=== PATIENT | female | born 1980 | race Caucasian/White ===

== ENCOUNTER 2023-11-20 19:03 | Emergency (ER) | payer MEDICARE, OTHER ==
[2023-11-20] MEDS ORDERED: SODIUM CHLORIDE 0.9% 500 ML 500 ML IV STA (20:17)
[2023-11-20] MEDS ORDERED: LORazepam 2 MG/ML INJ IV PRN (20:21)
[2023-11-20] MEDS ORDERED: ACETAMINOPHEN TAB 500 MG TAB PO STA (20:26)
[2023-11-20 21:28] LABS: Basophils # (A) 0.1 k/uL (0-0.2); Basophils % (A) 1 %; Eosinophils # (A) 0.1 k/uL (0-0.7); Eosinophils % (A) 2 %; HCT 43.9 % (34.0-46.0); HGB 14.5 gm/dL (11.4-16.0); Lymphocytes # (A) 1.8 k/uL (1.0-4.8); Lymphocytes % (A) 27 %; MCHC 33.1 g/dL (31.0-37.0); MCV 99.5 fL (80.0-100.0); Mean Platelet Volume 9.6; Monocytes # (A) 0.5 k/uL (0-1.0); Monocytes % (A) 7 %; Neutrophils # (A) 4.3 k/uL (1.3-7.7); Neutrophils % (A) 63 %; Platelet Count 165 k/uL (150-450); RBC 4.41 m/uL (3.80-5.40); RDW 11.9 % (11.5-15.5); WBC 6.9 k/uL (3.8-10.6)
--- NOTE | 2023-11-20 21:32 | CT ---
EXAMINATION TYPE: CT brain wo con CT DLP: 1122.4 mGycm, Automated exposure control for dose reduction was used. DATE OF EXAM: 11/20/2023 9:25 PM COMPARISON: None. CLINICAL INDICATION:Female, 43 years old with history of seizure activity, headache TECHNIQUE: Brain: Axial CT images of the brain were obtained with coronal and sagittal reformats created and rev iewed. Contrast used: None. Oral contrast used: None. FINDINGS: Brain: Extra-axial spaces: No abnormal extra-axial fluid collections. Ventricular system: Within normal limits Cerebral parenchyma: No acute intraparenchymal hemorrhage or mass effect. The calderón-white junction is well differentiated. Cerebellum: Unremarkable. Mass effect: No evidence of midline shift. Intracranial vasculature: unremarkable Soft tissues: Normal. Calvarium/osseous structures: No depressed skull fracture. Paranasal sinuses and mastoid air cells: Mild scattered paranasal sinus disease. Visualized orbits: Orbital contents are intact. IMPRESSION: No acute intracranial process.
[2023-11-20 21:34] LABS: ALT 12 U/L (4-34); AST 18 U/L (14-36); African American GFR (CKD) 62 (>60 ml/min/1.73 sqM); Albumin 4.4 g/dL (3.5-5.0); Alcohol <10 mg/dL; Alkaline Phosphatase 63 U/L (38-126); Anion Gap 10 mmol/L; Blood Urea Nitrogen 20 mg/dL (7-17); Calcium 9.5 mg/dL (8.4-10.2); Carbon Dioxide 19 mmol/L (22-30); Chloride 112 mmol/L (98-107); Glucose 91 mg/dL (74-99); Magnesium 1.9 mg/dL (1.6-2.3); Non-African American GFR(CKD) 53 (>60 ml/min/1.73 sqM); Potassium 3.8 mmol/L (3.5-5.1); Sodium 141 mmol/L (137-145); Total Bilirubin 0.7 mg/dL (0.2-1.3); Total Protein 7.7 g/dL (6.3-8.2)
[2023-11-20 22:00] LABS: Appearance,Urine Clear (Clear); Bilirubin,Urine Negative (Negative); Blood,Urine Negative (Negative); Color,Urine Colorless; Glucose,Urine (UA) Negative (Negative); Ketones,Urine Negative (Negative); Leukocyte Esterase,Urine Negative (Negative); Nitrite,Urine Negative (Negative); PH, Urine 5.5 (5.0-8.0); Protein,Urine Negative (Negative); Specific Gravity,Urine 1.007 (1.001-1.035); Urobilinogen,Urine <2.0 mg/dL (<2.0)
[2023-11-20 22:12] LABS: Cocaine Screen,Urine Not Detected (NotDetected); Phencyclidine Screen,Urine Not Detected (NotDetected); Urn Cannabinoid Scrn Detected (NotDetected)
[2023-11-20 22:13] LABS: Amphetamine Screen,Urine Not Detected (NotDetected); Barbiturate Screen,Urine Not Detected (NotDetected); Benzodiazepines Screen,Urine Detected (NotDetected); Methadone Screen, Urine Not Detected (NotDetected); Opiate Screen,Urine Not Detected (NotDetected); Oxycodone Screen, Urine Not Detected (NotDetected); Tricyclic Antidepressant,Urine Not Detected (NotDetected)
--- NOTE | 2023-11-20 22:36 | ED ---
General Adult HPI - General Chief complaint: Seizure Stated complaint: Seizure Time Seen by Provider: 11/20/23 19:30 Source: EMS Mode of arrival: EMS Limitations: altered mental status - History of Present Illness Initial comments: 43-year-old female with a past medical history significant for developmental delay, seizure disorder on Topamax presenting to the ED with a chief complaint of seizure-like activity. Per family/legal guardian who witnessed this, had an episode lasting approximately 5 minutes where she had upper extremity shaking. Reports that this is somewhat different from her history of seizures. At this time they report patient is back to her normal self. Patient at this time declines any chest pain shortness of breath abdominal pain or any other symptom at this time. - Related Data Allergies Allergy/AdvReac Type Severity Reaction Status Date / Time No Known Allergies Allergy Verified 11/20/23 20:55 Review of Systems ROS Statement: Those systems with pertinent positive or pertinent negative responses have been documented in the HPI. ROS Other: All systems not noted in ROS Statement are negative. Past Medical History Past Medical History: Seizure Disorder Additional Past Medical History / Comment(s): developmental delay Past Surgical History: No Surgical Hx Reported, Unable to Obtain Past Psychological History: Bipolar Smoking Status: Never smoker Past Alcohol Use History: None Reported Past Drug Use History: None Reported General Exam General appearance: alert, in no apparent distress Eye exam: Present: normal appearance ENT exam: Present: other (Edentulous. No evidence of intraoral trauma.) Neck exam: Present: normal inspection Respiratory exam: Present: normal lung sounds bilaterally Cardiovascular Exam: Present: regular rate, normal rhythm GI/Abdominal exam: Present: soft Extremities exam: Present: normal inspection Neurological exam: Present: alert, CN II-XII intact Course Vital Signs 11/20/23 11/20/23 11/20/23 19:17 20:13 22:00 Pulse Rate 72 68 60 Respiratory 20 20 18 Rate Blood Pressure 114/84 114/85 102/55 O2 Sat by Pulse 95 97 97 Oximetry Medical Decision Making - Medical Decision Making Was pt. sent in by a medical professional or institution (, PA, CARRIAGE SETTER, urgent care, hospital, or [place] [facility] [place] facility...) When possible be specific @ -No Did you speak to anyone other than the patient for history (EMS, parent, family, police, friend...)? What history was obtained from this source @ -Majority of the history provided by the patient's family/legal guardian. For further details please see HPI. Did you review nursing and triage notes (agree or disagree)? Why? @ -I reviewed and agree with nursing and triage notes Were old charts reviewed (outside hosp., previous admission, EMS record, old EKG, old radiological studies, urgent care reports/EKG's, [place] health [facility] facility records)? Report findings @ -No old charts were reviewed Differential Diagnosis (chest pain, altered mental status, abdominal pain women, abdominal pain men, vaginal bleeding, weakness, fever, dyspnea, syncope, headache, dizziness, GI bleed, back pain, seizure, CVA, palpatations, mental health, musculoskeletal)? @ -Differential Seizure: Recurrent seizure disorder, febrile seizure, alcohol withdrawal, stimulants, m eningitis, encephalitis, intercranial hemorrhage, intracranial tumor, stroke, eclampsia, thyrotoxicosis, hypocalcemia, hyponatremia, hypernatremia, hypomagnesemia, psychogenic, this is not meant to be an all-inclusive list. EKG interpreted by me (3pts min.). @ -None X-rays interpreted by me (1pt min.). @ -None done CT interpreted by me (1pt min.). @ -CT brain interpreted by me showing no evidence of acute finding. U/S interpreted by me (1pt. min.). @ -None done What testing was considered but not performed or refused? (CT, X-rays, U/S, labs)? Why? @ -None What meds were considered but not given or refused? Why? @ -None Did you discuss the management of the patient with other professionals (professionals i.e. , PA, CARRIAGE SETTER, lab, RT, psych nurse, long term care social worker, construction equipment operator, teacher, occupational health and safety officer, telephonic case manager)? Give summary @ -No Was smoking cessation discussed for >3mins.? @ -No Was critical care preformed (if so, how long)? @ -No Were there social determinants of health that impacted care today? How? (Homelessness, low income, unemployed, alcoholism, drug addiction, transportation, low edu. Level, literacy, decrease access to med. care, [facility]ci, rehab)? @ -No Was there de-escalation of care discussed even if they declined (Discuss DNR or withdrawal of care, Hospice)? DNR status @ -No What co-morbidities impacted this encounter? (DM, HTN, Smoking, COPD, CAD, Cancer, CVA, ARF, Chemo, Hep., AIDS, mental health diagnosis, sleep apnea, morb id obesity)? @ -Seizure disorder, developmental delay Was patient admitted / discharged? Hospital course, mention meds given and route, prescriptions, significant lab abnormalities, going to OR and other pertinent info. @ -Discharge 43-year-old female presenting to the ED with a chief complaint of seizure-like activity. At this time, patient no complaints and family reports that she is back to her normal self. CT scan of the brain reveals no acute process. Laboratory studies including CBC, magnesium, lactic acid, urinalysis unremarkable. Chemistry panel did show some slight elevations in BUN and creatinine. Urine drug screen was positive for benzodiazepines which she uses as needed for seizures and THC which she has been using reportedly for a very long time and has had no problems with this. At this time family would like to go home. Discharged home in stable condition with referral to see neurology. Discussed return precautions with family and guardian who verbalized agreement. Undiagnosed new problem with uncertain prognosis? @ -No Drug Therapy requiring intensive monitoring for toxicity (Heparin, Nitro, Insulin, Cardizem)? @ -No Were any procedures done? @ -No Diagnosis/symptom? @ -Seizure-like activity Acute, or Chronic, or Acute on Chronic? @ -Acute Uncomplicated (without systemic symptoms) or Complicated (systemic symptoms)? @ -Uncomplicated Side effects of treatment? @ -No Exacerbation, Progression, or Severe Exacerbation? @ -No Poses a threat to life or bodily function? How? (Chest pain, [place], [place], pneumonia, PE, COPD, DKA, ARF, appy, cholecystitis, CVA, Diverticulitis, Homicidal, Suicidal, threat to staff... and all critical care pts) @ -No - Lab Data Result diagrams: 11/20/23 20:49 11/20/23 20:49 Lab Results 11/20/23 11/20/23 11/20/23 Range/Units 20:49 20:49 20:49 WBC 6.9 (3.8-10.6) k/uL RBC 4.41 (3.80-5.40) m/uL Hgb 14.5 (11.4-16.0) gm/dL Hct 43.9 (34.0-46.0) % MCV 99.5 (80.0-100.0) fL MCH 33.0 (25.0-35.0) pg MCHC 33.1 (31.0-37.0) g/dL RDW 11.9 (11.5-15.5) % Plt Count 165 (150-450) k/uL MPV 9.6 Neutrophils % 63 % Lymphocytes % 27 % Monocytes % 7 % Eosinophils % 2 % Basophils % 1 % Neutrophils # 4.3 (1.3-7.7) k/uL Lymphocytes # 1.8 (1.0-4.8) k/uL Monocytes # 0.5 (0-1.0) k/uL Eosinophils # 0.1 (0-0.7) k/uL Basophils # 0.1 (0-0.2) k/uL Sodium 141 (137-145) mmol/L Potassium 3.8 (3.5-5.1) mmol/L Chloride 112 H (98-107) mmol/L Carbon Dioxide 19 L (22-30) mmol/L Anion Gap 10 mmol/L BUN 20 H (7-17) mg/dL Creatinine 1.24 H (0.52-1.04) mg/dL Est GFR (CKD-EPI)AfAm 62 (>60 ml/min/1.73 sqM) Est GFR (CKD-EPI)NonAf 53 (>60 ml/min/1.73 sqM) Glucose 91 (74-99) mg/dL Plasma Lactic Acid Guero (0.7-2.0) mmol/L Calcium 9.5 (8.4-10.2) mg/dL Magnesium 1.9 (1.6-2.3) mg/dL Total Bilirubin 0.7 (0.2-1.3) mg/dL AST 18 (14-36) U/L ALT 12 (4-34) U/L Alkaline Phosphatase 63 (38-126) U/L Total Protein 7.7 (6.3-8.2) g/dL Albumin 4.4 (3.5-5.0) g/dL Urine Color Colorless Urine Appearance Clear (Clear) Urine pH 5.5 (5.0-8.0) Ur Specific [place] 1.007 (1.001-1.035) Urine Protein Negative (Negative) Urine Glucose (UA) Negative (Negative) Urine Ketones Negative (Negative) Urine Blood Negative (Negative) Urine Nitrite Negative (Negative) Urine Bilirubin Negative (Negative) Urine Urobilinogen <2.0 (<2.0) mg/dL Ur Leukocyte Esterase Negative (Negative) Urine Opiates Screen (NotDetected) Ur Oxycodone Screen (NotDetected) Urine Methadone Screen (NotDetected) Ur Barbiturates Screen (NotDetected) U Tricyclic Antidepress (NotDetected) Ur Phencyclidine Scrn (NotDetected) Ur Amphetamines Screen (NotDetected) U Methamphetamines Scrn (NotDetected) U Benzodiazepines Scrn (NotDetected) Urine Cocaine Screen (NotDetected) U Marijuana (THC) Screen (NotDetected) Serum Alcohol <10 mg/dL 11/20/23 11/20/23 Range/Units 20:49 20:49 WBC (3.8-10.6) k/uL RBC (3.80-5.40) m/uL Hgb (11.4-16.0) gm/dL Hct (34.0-46.0) % MCV (80.0-100.0) fL MCH (25.0-35.0) pg MCHC (31.0-37.0) g/dL RDW (11.5-15.5) % Plt Count (150-450) k/uL MPV Neutrophils % % Lymphocytes % % Monocytes % % Eosinophils % % Basophils % % Neutrophils # (1.3-7.7) k/uL Lymphocytes # (1.0-4.8) k/uL Monocytes # (0-1.0) k/uL Eosinophils # (0-0.7) k/uL Basophils # (0-0.2) k/uL Sodium (137-145) mmol/L Potassium (3.5-5.1) mmol/L Chloride (98-107) mmol/L Carbon Dioxide (22-30) mmol/L Anion Gap mmol/L BUN (7-17) mg/dL Creatinine (0.52-1.04) mg/dL Est GFR (CKD-EPI)AfAm (>60 ml/min/1.73 sqM) Est GFR (CKD-EPI)NonAf (>60 ml/min/1.73 sqM) Glucose (74-99) mg/dL Plasma Lactic Acid Guero 1.3 (0.7-2.0) mmol/L Calcium (8.4-10.2) mg/dL Magnesium (1.6-2.3) mg/dL Total Bilirubin (0.2-1.3) mg/dL AST (14-36) U/L ALT (4-34) U/L Alkaline Phosphatase (38-126) U/L Total Protein (6.3-8.2) g/dL Albumin (3.5-5.0) g/dL Urine Color Urine Appearance (Clear) Urine pH (5.0-8.0) Ur Specific [place] (1.001-1.035) Urine Protein (Negative) Urine Glucose (UA) (Negative) Urine Ketones (Negative) Urine Blood (Negative) Urine Nitrite (Negative) Urine Bilirubin (Negative) Urine Urobilinogen (<2.0) mg/dL Ur Leukocyte Esterase (Negative) Urine Opiates Screen Not Detected (NotDetected) Ur Oxycodone Screen Not Detected (NotDetected) Urine Methadone Screen Not Detected (NotDetected) Ur Barbiturates Screen Not Detected (NotDetected) U Tricyclic Antidepress Not Detected (NotDetected) Ur Phencyclidine Scrn Not Detected (NotDetected) Ur Amphetamines Screen Not Detected (NotDetected) U Methamphetamines Scrn Not Detected (NotDetected) U Benzodiazepines Scrn Detected H (NotDetected) Urine Cocaine Screen Not Detected (NotDetected) U Marijuana (THC) Screen Detected H (NotDetected) Serum Alcohol mg/dL Disposition Clinical Impression: Seizure-like activity Disposition: HOME SELF-CARE Condition: Good Instructions (If sedation given, give patient instructions): Recurrent Seizures in Adults (ED) Additional Instructions: Please return to the Emergency Department if symptoms worsen or any other concerns. Please follow-up with neurology. Is patient prescribed a controlled substance at d/c from ED?: No Referrals: Dima Li MD [Primary Care Provider] - 1-2 days Gin Gomez MD [STAFF PHYSICIAN] - 1-2 days Time of Disposition: 22:41
[2023-11-20 22:47] VITALS: BP 123/71; PULSE 60; RESP 17; TEMP 97.4
== END 2023-11-20 23:03 | disposition home or self-care (01) ==
LOC: EC 19:03
DX: G40.909 Epilepsy, unspecified, not intractable, without status epilepticus (principal); R79.89 Other specified abnormal findings of blood chemistry
CPT/HCPCS: 36415; 93005; 80053; 80201; 83605; 83735; 85025; 81003; 80306; 70450; 99285; 96360; G0480; 80320

== ENCOUNTER 2023-11-20 23:14 | Inpatient (IN) | payer MEDICARE, OTHER ==
[2023-11-20 23:29] LABS: Glucose,Whole Blood 114 mg/dL (70-110)
[2023-11-20] MEDS: LORazepam 2 MG/ML INJ IV STA (23:34)
[2023-11-20] MEDS ORDERED: NALOXONE 0.4 MG/ML 1 ML VIAL IV PRN (23:46)
--- NOTE | 2023-11-20 23:49 | ED ---
General Adult HPI - General Chief complaint: Seizure Stated complaint: Seizure Source: family Mode of arrival: wheelchair - History of Present Illness Initial comments: 43-year-old female with a past medical history for seizures presenting to the ED with a chief complaint of seizure. Patient was just here and discharged home. Upon discharge at the stoplight patient again started to have recurrence of seizure-like activity in which family reported shakiness of her bilateral upper extremities and cyanosis of the lips lasting around 5 minutes. At this time patient is back to her normal self. Upon discharge patient had no recurrences of seizure-like activity. - Related Data Allergies Allergy/AdvReac Type Severity Reaction Status Date / Time No Known Allergies Allergy Verified 11/20/23 23:25 Review of Systems ROS Statement: Those systems with pertinent positive or pertinent negative responses have been documented in the HPI. ROS Other: All systems not noted in ROS Statement are negative. Past Medical History Past Medical History: Seizure Disorder Additional Past Medical History / Comment(s): developmental delay History of Any Multi-Drug Resistant Organisms: None Reported Past Surgical History: No Surgical Hx Reported, Unable to Obtain Past Psychological History: Bipolar Smoking Status: Never smoker Past Alcohol Use History: None Reported Past Drug Use History: None Reported General Exam General appearance: alert, in no apparent distress Eye exam: Present: PERRL Neck exam: Present: normal inspection Respiratory exam: Present: normal lung sounds bilaterally Cardiovascular Exam: Present: regular rate, normal rhythm GI/Abdominal exam: Present: soft Neurological exam: Present: alert Skin exam: Present: warm, dry Course Vital Signs 11/20/23 11/20/23 23:19 23:30 Temperature 98.2 F Pulse Rate 64 79 Respiratory 18 18 Rate Blood Pressure 104/63 103/68 O2 Sat by Pulse 100 96 Oximetry Medical Decision Making - Medical Decision Making Was pt. sent in by a medical professional or institution (, PA, STABLEHAND, urgent care, hospital, or skilled nursing...) When possible be specific @ -No Did you speak to anyone other than the patient for history (EMS, parent, family, police, friend...)? What history was obtained from this source @ -Yes spoke to the patient's family/guardian Did you review nursing and triage notes (agree or disagree)? Why? @ -I reviewed and agree with nursing and triage notes Were old charts reviewed (outside hosp., previous admission, EMS record, old EKG, old radiological studies, urgent care reports/EKG's, skilled nursing records)? Report findings @ -I did not need to review any prior charts as this patient was recently discharged by me. Differential Diagnosis (chest pain, altered mental status, abdominal pain women, abdominal pain men, vaginal bleeding, weakness, fever, dyspnea, syncope, headache, dizziness, GI bleed, back pain, seizure, CVA, palpatations, mental health, musculoskeletal)? @ -Differential Seizure: Recurrent seizure disorder, febrile seizure, alcohol withdrawal, stimulants, meningitis, encephalitis, intercranial hemorrhage, intracranial tumor, stroke, eclampsia, thyrotoxicosis, hypocalcemia, hyponatremia, hypernatremia, hypomagnesemia, psychogenic, this is not meant to be an all-inclusive list. EKG interpreted by me (3pts min.). @ -None X-rays interpreted by me (1pt min.). @ -None done CT interpreted by me (1pt min.). @ -None done U/S interpreted by me (1pt. min.). @ -None done What testing was considered but not performed or refused? (CT, X-rays, U/S, labs)? Why? @ -None What meds were considered but not given or refused? Why? @ -None Did you discuss the management of the patient with other professionals (professionals i.e. , PA, STABLEHAND, lab, RT, psych nurse, protective services social worker, advertising dispatch clerks supervisor, teacher, driver's license reviewing officer, hospice case manager)? Give summary @ -No Was smoking cessation discussed for >3mins.? @ -No Was critical care preformed (if so, how long)? @ -No Were there social determinants of health that impacted care today? How? (Homelessness, low income, unemployed, alcoholism, drug addiction, transportation, low edu. Level, literacy, decrease access to med. care, shelter, rehab)? @ -No Was there de-escalation of care discussed even if they declined (Discuss DNR or withdrawal of care, Hospice)? DNR status @ -No What co-morbidities impacted this encounter? (DM, HTN, Smoking, COPD, CAD, Cancer, CVA, ARF, Chemo, Hep., AIDS, mental health diagnosis, sleep apnea, morbid obesity)? @ -None Was patient admitted / discharged? Hospital course, mention meds given and route, prescriptions, significant lab abnormalities, going to OR and other pertinent info. @ -Admission 43-year-old female with a history of seizure disorder on Topamax. Patient recently discharged by me as she had no occurrences of seizure-like activity here while in the ED and laboratory studies at this time were unremarkable. Shortly after leaving patient reported to have seizure-like activity at the stoplight where she had erratic movements of her upper extremities and her lips started to go blue lasting approximately 5 minutes. Patient will be admitted to observation with consult to neurology. Discussed plan of care with the patient's guardian who is in agreement. Undiagnosed new problem with uncertain prognosis? @ -No Drug Therapy requiring intensive monitoring for toxicity (Heparin, Nitro, Insulin, Cardizem)? @ -No Were any procedures done? @ -No Diagnosis/symptom? @ -Seizure-like activity Acute, or Chronic, or Acute on Chronic? @ -Acute Uncomplicated (without systemic symptoms) or Complicated (systemic symptoms)? @ -Uncomplicated Side effects of treatment? @ -No Exacerbation, Progression, or Severe Exacerbation? @ -No Poses a threat to life or bodily function? How? (Chest pain, [place], [place], pneumonia, PE, COPD, DKA, ARF, appy, cholecystitis, CVA, Diverticulitis, Homicidal, Suicidal, threat to staff... and all critical care pts) @ -No - Lab Data Lab Results 11/20/23 Range/Units 23:28 POC Glucose (mg/dL) 114 H (70-110) mg/dL POC Glu Nozzleman ID [id number] Ruiz Disposition Clinical Impression: Seizure Disposition: ADMITTED IP TO THIS HOSP Condition: Good Referrals: Dima Li MD [Primary Care Provider] - 1-2 days Time of Disposition: 23:52
[2023-11-20] MEDS: TOPIRAMATE 100 MG TAB PO SCH (23:51)
[2023-11-20] MEDS: SODIUM CHLORIDE 0.9% 1,000 ML IV SCH (23:54)
[2023-11-21] MEDS: ACETAMINOPHEN TAB 325 MG TAB PO PRN (05:01)
[2023-11-21] MEDS: LORazepam 2 MG/ML INJ IV PRN (10:19)
[2023-11-21] MEDS: GABAPENTIN 400 MG CAP PO SCH (15:07)
[2023-11-21] MEDS: BREXPIPRAZOLE 3 MG PO SCH ×2 (15:07→17:48)
[2023-11-21] MEDS: IBUPROFEN 800 MG TAB PO PRN (15:26)
[2023-11-21] MEDS: diazePAM 5 MG TAB PO PRN (16:33)
[2023-11-21] MEDS: busPIRone HCl 10 MG TAB PO SCH (21:13)
[2023-11-21] MEDS: traZODone HCL 100 MG TAB PO SCH (21:13)
[2023-11-21] MEDS: FAMOTIDINE 20 MG TAB PO SCH (21:13)
--- NOTE | 2023-11-22 00:27 | HP ---
HISTORY AND PHYSICAL CHIEF COMPLAINT: Seizure disorder. HISTORY OF PRESENT ILLNESS: This 43-year-old woman with a past medical history of seizure disorder and developmental delay was taken to [facility] with complaints of seizure-like activity. Per the legal guardian, the episode lasted about 5 minutes and left upper extremity was shaking, and the patient was evaluated and CAT scan was normal, and the patient was discharged home and apparently at the stoplight, the patient felt like she had to have a seizure again. The patient was returned back to ER and admitted for further evaluation and treatment. The patient complains of headache at this time. There is no history of any fever, rigors, or chills at this time. PAST MEDICAL HISTORY: Seizure disorder, developmental delay. Rest of the history and rest of the chart are also reviewed. HOME MEDICATIONS: Reviewed, trazodone, dose and rest of the medications reviewed. ALLERGIES: None. FAMILY HISTORY: No history of heart disease or strokes in the family. SOCIAL HISTORY: No history of smoking or alcohol. REVIEW OF SYSTEMS: A 14-point review is negative except as mentioned earlier. PHYSICAL EXAMINATION: VITAL SIGNS: Pulse is 67, blood pressure 106/42, respirations 12. HEENT: Conjunctivae normal. NECK: No JVD. CARDIOVASCULAR: S1, S2. RESPIRATIONS: Breath sounds diminished at the bases. ABDOMEN: Soft, nontender. LEGS: No edema. NERVOUS SYSTEM: Nonfocal. SKIN: No ulcer, rash, bleeding. JOINTS: No active deforming arthropathy. LABORATORY DATA: Glucose is 114. Otherwise, the recent labs are creatinine is showing 1.24. ASSESSMENT: 1. Seizure disorder and breakthrough seizures. 2. Headaches. 3. Developmental delay. 4. History of bipolar. RECOMMENDATIONS AND DISCUSSION: This 43-year-old woman was admitted with breakthrough seizures. At this time, we will monitor the patient closely. I would recommend Neurology consultation, EEG, and symptomatic treatment for the headache. CT scan has been ordered and normal. Neuro checks and neurovascular evaluation also will be done. The prognosis is guarded because of multiple complex medical issues. Home medications will be continued after confirmation. Further recommendations to follow. See orders for details. MMODL / IJN: [id number] /
[2023-11-22] MEDS: ONDANSETRON 4 MG/2 ML VIAL IVP PRN (01:36)
[2023-11-22] MEDS: Acetaminophen-Codeine 300-30mg TAB PO PRN (05:46)
[2023-11-22] MEDS: FLUoxetine HCL 20 MG CAP PO SCH (08:11)
--- NOTE | 2023-11-22 11:35 | P.CNNES ---
History of Present Illness Consult date: 11/22/23 Requesting physician: Hola Brownlee Reason for Consult: Seizure-like activity History of Present Illness: Patient is a 43-year-old left-handed female with history of developmental delay, seizure disorder, currently on Topamax, does not follow-up with a neurologist, came to the hospital day before yesterday at 11:14 PM for a seizure. Patient apparently came with the ambulance earlier same day at 7:03 PM for a seizure. When EMS arrived, it was reported that family witnessed patient having a seizure and was unresponsive for approximately 10 minutes. Patient was postictal and had urinary incontinence. Patient was alert and oriented x [address] and event but not to the time initially. Patient became alert and oriented x 4 following postictal state. Patient's heart monitoring showed normal sinus rhyth m. Blood sugar was 120. Patient's blood pressure was 124/68, pulse rate 88 saturation 99%, respiration 20.. Vital signs on arrival blood pressure 104/63, pulse of [address] head performed on 11/20/2023 revealed no acute intracranial process. I personally reviewed CT head agree with the findings. Patient's blood tests shows normal CBC, electrolytes, BUN is 20 creatinine 1.24. Hepatic panel is normal, UA negative, urine drug screen positive for benzodiazepine and marijuana. She takes benzodiazepine as needed for seizure, and has been taking marijuana for a long time. Patient was stable in the ER, was sent home to follow-up with a neurologist. Patient went home and had another seizure like activity in which family reported that patient had shakiness of her bilateral upper extremities and cyanosis of the lips lasting around 5 minutes. Patient was brought back to the hospital. By the time she arrived to the ER, she was back to baseline. Patient tells me that she has history of seizures since she was 4 years old. She suffered from head injury when she fell down a flight of stairs at age 2, and the seizures started couple years later. Patient states that she gets minor seizures, in which her eyes rolls up and she "daydreams". It last for "couple seconds". This can happen daily sometimes, although can happen once a week. Patient states "I have spots in me, which is supposed to stop the seizures", probably referring to VNS. Patient states that she does not have a seizure, that would last for 10 minutes, which was very unusual. Patient states that she takes medication previously, does not miss the dose. The nurse last night reported that patient's medication back consists of numerous bottles of same medications, therefore uncertain if she is taking it regularly or not. Patient lives with her nephew and his and their kids. Review of Systems Constitutional: Denies chills, Denies fever Eyes: denies blurred vision, denies diplopia, denies pain Ears: deny: decreased hearing, ear discharge Ears, nose, mouth and throat: Reports headache, Denies sore throat, Denies vertigo Cardiovascular: Denies chest pain, Denies shortness of breath Respiratory: Reports cough, Reports excessive sputum Gastrointestinal: Reports diarrhea, Denies abdominal pain, Denies nausea, Denies vomiting Genitourinary: Denies dysuria, Denies hematuria, Denies urge incontinence Musculoskeletal: Reports low back pain, Denies neck pain Integumentary: Denies pruritus, Denies rash Neurological: Reports as per HPI Psychiatric: Reports anxiety, Reports depression Past Medical History Past Medical History: Seizure Disorder Additional Past Medical History / Comment(s): developmental delay History of Any Multi-Drug Resistant Organisms: None Reported Past Surgical History: Cholecystectomy, Pacemaker Past Anesthesia/Blood Transfusion Reactions: No Reported Reaction Type of Cardiac Device: Unknown Device Placement Date:: april 2022 Past Psychological History: Bipolar Smoking Status: Vaper Past Alcohol Use History: None Reported Past Drug Use History: None Reported Medications and Allergies Home Medications Medication Instructions Recorded Confirmed Type Brexpiprazole [Rexulti] 3 mg PO DAILY 11/21/23 11/21/23 History FLUoxetine HCL [PROzac] 40 mg PO DAILY 11/21/23 11/21/23 History Famotidine [Pepcid] 20 mg PO BID 11/21/23 11/21/23 History Gabapentin [Neurontin] 400 mg PO TID 11/21/23 11/21/23 History Ibuprofen [Motrin] 800 mg PO TID PRN 11/21/23 11/21/23 History Topiramate [Topamax] 100 mg PO BID 11/21/23 11/21/23 History busPIRone HCL [Buspar] 30 mg PO BID 11/21/23 11/21/23 History diazePAM [Valium] 10 mg PO TID PRN 11/21/23 11/21/23 History traZODone HCL [Trazodone HCl] 300 mg PO HS 11/21/23 11/21/23 History Allergies Allergy/AdvReac Type Severity Reaction Status Date / Time No Known Allergies Allergy Verified 11/21/23 07:36 Physical Examination - Vital Signs Vital Signs: Vital Signs Temp Pulse Pulse Resp BP BP Pulse Ox 11/22/23 07:29 98.5 F 63 20 98/53 99 11/22/23 02:00 98.1 F 61 16 94/63 99 11/21/23 20:00 61 16 11/21/23 19:55 98 F 60 16 98/61 98 11/21/23 15:21 97.6 F 67 17 101/62 99 11/21/23 13:41 70 18 105/63 99 11/21/23 10:21 67 16 112/73 97 Intake and Output 11/21/23 11/22/23 11/22/23 22:59 06:59 14:59 Intake Total 1230 Balance 1230 Intake: Intake, IV Titration 150 Amount Sodium Chloride 0.9% 1, 150 000 ml @ 75 mls/hr IV . [id number] [facility] Rx#:[id number] Oral 1080 Other: Voiding Method Toilet # Voids 1 3 1 Weight 95.254 kg Patient is a middle-aged female, in no acute distress. Patient is alert awake oriented to time place and person. She knows it is November and the year is 2023 and that she is in [place] in [place]. She states the current president is "Abelino". Speech and language functions are normal. Patient can name and repeat very well. No aphasia or dysarthria. Attention, concentration is intact and fund of knowledge is slightly limited. Detailed cognitive function testing deferred. On cranial nerve examination, pupils are equal, round and reacting to light, visual arana are full on confrontation, with no neglect on double simultaneous stimulation. Extraocular muscles are intact with no nystagmus. Face is symmetric, tongue protrudes to the midline. Palatal elevation and sensation normal, hearing and shoulder shrug normal, facial sensation normal. Patient is edentulous. On muscle strength testing, there is no pronator drift and the strength is normal in arms and legs distally and proximally. Deep tendon reflexes are symmetric 2 all over and plantars downgoing. Sensory to touch is equal with no neglect on double simultaneous stimulation. Cerebellar function showed no ataxia for haixun-[id number] testing. No dysdiad ochokinesia. No ataxia for bvdx-mm-[id number] testing on either side. Tone and bulk of muscles normal. Gait deferred.. On general examination, there is no carotid bruit or murmur, S1-S2 audible. Chest is clear on consultation. Abdomen is soft nontender. No organomegaly, bowel sounds present. Peripheral pulses are present. No peripheral edema. Results - Laboratory Findings CBC and BMP: 11/23/23 05:41 11/23/23 05:41 Abnormal Lab Findings: Abnormal Labs 11/20/23 23:28 POC Glucose (mg/dL) 114 H Assessment and Plan Assessment: * Seizure disorder, came with breakthrough seizure. Patient usually gets minor seizure, which appears like absence seizures, which can happen daily. However her presenting seizure was atypical, grand mal, lasted for 10 minutes, which she usually does not have. Patient states she is completely compliant with the medication. * Developmental delays Plan: * Patient is taking Topamax 100 mg twice daily. Patient states she is compliant with the medication. We will check Topamax level. As patient is having absence type of seizures almost on a daily basis, we will increase Topamax to 150 mg twice daily. Patient was informed of possible side effects of Topamax. * EEG is pending. We will follow after EEG is completed. * We will try to obtain collateral history from patient's sister as well. * Thank you for the consult. Addendum: EEG was abnormal due to presence of frontal intermittent rhythmic delta activity, which may suggest toxic metabolic encephalopathy or underlying structural abnormality. Presence of sporadic paroxysmal episodes of generalized 3 Hz spike and slow wave, frontally maximal, lasting for 3-4 seconds, suggestive of tendency for generalized seizures. It also showed frequent focal slowing in the bitemporal region, left more than right, suggestive of focal cortical neuronal dysfunction. Based upon the EEG findings, frequent seizures, agree with increasing dose of Topamax up to 150 mg twice daily. Neurologically clear for discharge. Recommend patient follow-up with neurologist in 1 to 2 weeks for further management of epilepsy.
--- NOTE | 2023-11-22 12:57 | EEG ---
ELECTROENCEPHALOGRAM REPORT PREAMBLE: This is a 43-year-old female with history of seizure disorder, came with prolonged seizure. CURRENT MEDICATION: Topamax 100 mg b.i.d. EEG FINDINGS: This is a 21-channel digital EEG recorded with video component, utilizing 10/20 international system with referential and bipolar montages. Background consists of well-developed, well-regulated, moderate voltage activity intermixed alpha and some fast frequency beta activity seen in bihemispheric region. Background is posterior dominant and reactive to eye opening and closing. Frontal intermittent rhythmic delta activity was seen. Intermittent bursts of paroxysmal high-amplitude generalized, frontally, maximal delta slowing in 2 to 3 Hertz was seen lasting for about 3 to 4 seconds. Photic driving response was not seen. The frequent focal slowing in dysrhythmic delta range was seen intermittently in bitemporal region, left more than right. During middle and later part of the study, these rhythmic delta were associated with spike and slow wave in generalized distribution at 3 Hertz seen for about 3 seconds. Sometimes the patient was having eye blinking noticed during the spells. Different stages of sleep were not seen. IMPRESSION: This is an abnormal EEG due to: 1. Frontal intermittent rhythmic delta activity, which may suggest toxic metabolic encephalopathy or underlying structural abnormality. 2. Presence of sporadic, paroxysmal bursts of generalized 3 Hz spike and slow wave, frontally, maximal lasting for 3 to 4 seconds, suggestive of tendency for generalized seizures. 3. Frequent focal slowing in bitemporal region, left more than right, suggestive of focal cortical neuronal dysfunction. MMFRANCIEL / IJN: [id number] / MTDD
[2023-11-22 14:32] LABS: Appearance,Urine Cloudy (Clear); Bacteria,Urine Occasional /hpf; Bilirubin,Urine Negative (Negative); Blood,Urine Negative (Negative); Budding Yeast,Urine Few /hpf; Color,Urine Colorless; Glucose,Urine (UA) Negative (Negative); Ketones,Urine Negative (Negative); Leukocyte Esterase,Urine Negative (Negative); Nitrite,Urine Negative (Negative); Protein,Urine Negative (Negative); RBC,Urine 1 /hpf (0-5); Specific Gravity,Urine 1.004 (1.001-1.035); Squamous Epithelial Cell,Urine 2 /hpf (0-4); Urobilinogen,Urine <2.0 mg/dL (<2.0); WBC,Urine 6 /hpf (0-5)
[2023-11-22 14:42] LABS: Amphetamine Screen,Urine Not Detected (NotDetected); Barbiturate Screen,Urine Not Detected (NotDetected); Benzodiazepines Screen,Urine Detected (NotDetected); Cocaine Screen,Urine Not Detected (NotDetected); Methadone Screen, Urine Not Detected (NotDetected); Opiate Screen,Urine Detected (NotDetected); Oxycodone Screen, Urine Not Detected (NotDetected); Phencyclidine Screen,Urine Not Detected (NotDetected); Tricyclic Antidepressant,Urine Not Detected (NotDetected); Urn Cannabinoid Scrn Detected (NotDetected)
--- NOTE | 2023-11-22 22:33 | PN ---
PROGRESS NOTE DATE OF SERVICE: 11/22/2023 SUBJECTIVE: This 43-year-old woman was admitted with seizures and breakthrough seizures, being closely monitored. No chest pain, no palpitations. The patient is complaining of some headache. EEG showed epileptiform activity with generalized spike and slow-wave. The patient is on Topamax 150 mg b.i.d. OBJECTIVE: VITAL SIGNS: Pulse is 61, blood pressure 98/53, respirations 20. CHEST: Clear to auscultation. CARDIOVASCULAR: S1, S2. ABDOMEN: Soft. NERVOUS SYSTEM: No focal deficits. LABORATORY DATA: Reviewed. ASSESSMENT: 1. Seizure disorder and breakthrough seizures. 2. Abnormal EEG. 3. Headaches. 4. Development delay. 5. History of bipolar. RECOMMENDATIONS: Recommended to continue current management, continue symptomatic treatment. Topamax dose is increased by Neurology. Recommended repeat labs, closely monitor, and symptomatic treatment will be provided and further recommendations to follow. MMODL / IJN: [id number] /
[2023-11-22] MEDS: TOPIRAMATE 100 MG TAB PO SCH (22:56)
[2023-11-23 08:39] LABS: Basophils # (A) 0.07 X 10*3/uL (0.00-0.10); Basophils % (A) 1.1 %; Eosinophils # (A) 0.17 X 10*3/uL (0.04-0.35); Eosinophils % (A) 2.7 %; HCT 40.5 % (37.2-46.3); HGB 13.2 g/dL (12.0-15.0); Lymphocytes # (A) 1.97 X 10*3/uL (0.90-5.00); Lymphocytes % (A) 31.5 %; MCH 32.4 pg (27.0-32.0); MCHC 32.6 g/dL (32.0-37.0); MCV 99.3 FL (80.0-97.0); Mean Platelet Volume 11.9 FL (9.5-12.2); Monocytes # (A) 0.44 X 10*3/uL (0.20-1.00); NRBC Per 100 WBC 0 X 10*3/uL (0.00-0.01); Neutrophils # (A) 3.58 X 10*3/uL (1.80-7.70); Neutrophils % (A) 57.4 %; Platelet Count 160 X 10*3/uL (140-440); RBC 4.08 X 10*6/uL (4.10-5.20); RDW 12.2 % (11.5-14.5); WBC 6.25 X 10*3/uL (4.50-10.00)
[2023-11-23 09:03] LABS: BUN/Creat Ratio 12.75 Ratio (12.00-20.00); Blood Urea Nitrogen 15.3 mg/dL (9.0-27.0); Carbon Dioxide 19.9 mmol/L (21.6-31.8); Chloride 113 mmol/L (96-109); Glucose 97 mg/dL (70-110); Potassium 4.4 mmol/L (3.5-5.5); Sodium 142 mmol/L (135-145)
[2023-11-23 09:32] VITALS: BP 114/77; PULSE 63; RESP 18; TEMP 97.6
--- NOTE | 2023-11-24 06:21 | P.DS ---
Providers Date of admission: 11/21/23 01:24 Expected date of discharge: 11/23/23 Attending physician: Nayely Corey MD Consults: 11/20/23 23:46 Consult Physician Urgent Consulting Provider: Gin Gomez Consult Reason/Comments: seizure like activity Do you want consulting provider notified?: Yes Primary care physician: Dima Li Hospital Course: Final diagnosis Seizure disorder and breakthrough seizures Abnormal EEG Headaches Developmental delay History of bipolar GI prophylaxis DVT prophylaxis Full code Discharge disposition Patient is being discharged in a stable condition with guarded prognosis to home. Patient will follow-up with FRANCISCO JAVIER Garsia in the outpatient setting upon discharge. Patient is to continue with current medications as prescribed and close outpatient follow-up with neurology as scheduled. Total time taken is greater than 35 minutes. Hospital course This is a 43-year-old female who was recently admitted with history of seizures although having breakthrough seizures and evaluated by neurology. Patient underwent EEG showing epileptiform activity and generalized spikes recommending increasing Topamax to 150 mg twice daily and outpatient follow-up with neurology. Patient has been cleared by consultations. Please refer to consultation note for further HPI. Patient may need to go to primary care provider's office for referral to neurology. Will provide resources. Currently no reports of chest pain, shortness of breath, or palpitations. Patient is afebrile. No reports of nausea or vomiting and patient is tolerating diet. Patient will be discharged home with guarded prognosis. High risk for readmissions. Physical exam: Gen: This is a 43-year-old female who is awake, alert and oriented x 2, baseline, well-developed, well-nourished HEENT: Head is atraumatic, normocephalic. Pupils equal, round. Sclerae is anicteric. NECK: Supple. No JVD. No lymphadenopathy. No thyromegaly. LUNGS: Clear to auscultation. No wheezes or rhonchi. No intercostal retractions. HEART: Regular rate and rhythm. No murmur. ABDOMEN: Soft. Bowel sounds are present. No masses. No tenderness. EXTREMITIES: No pedal edema. No calf tenderness. NEUROLOGICAL: Patient is awake, alert and oriented x3. Cranial nerves 2 through 12 are grossly intact. Please refer to medication reconciliation sheet for a list of medications. The impression and plan of care has been dictated by Anastacia Avi, Nurse Practitioner as directed. Dr. Jatin MD I have performed a history and examination and MDM of this patient, discussed the same with the dictator, and agree with the dictator's assessment and plan as written ,documented as a scribe. Based on total visit time, I have performed more than 50% of the visit. Patient Condition at Discharge: Good Plan - Discharge Summary Discharge Rx Participant: Yes New Discharge Prescriptions: New Topiramate [Topamax] 150 mg PO BID 30 Days #90 tab Acetaminophen Tab [Tylenol] 650 mg PO Q6HR PRN tab PRN Reason: Fever And/ Or Pain Continue Ibuprofen [Motrin] 800 mg PO TID PRN PRN Reason: Pain Famotidine [Pepcid] 20 mg PO BID FLUoxetine HCL [PROzac] 40 mg PO DAILY busPIRone HCL [Buspar] 30 mg PO BID traZODone HCL 300 mg PO HS Gabapentin [Neurontin] 400 mg PO TID diazePAM [Valium] 10 mg PO TID PRN PRN Reason: Anxiety Brexpiprazole [Rexulti] 3 mg PO DAILY Discontinued Topiramate [Topamax] 100 mg PO BID Discharge Medication List Brexpiprazole [Rexulti] 3 mg PO DAILY 11/21/23 [History] FLUoxetine HCL [PROzac] 40 mg PO DAILY 11/21/23 [History] Famotidine [Pepcid] 20 mg PO BID 11/21/23 [History] Gabapentin [Neurontin] 400 mg PO TID 11/21/23 [History] Ibuprofen [Motrin] 800 mg PO TID PRN 11/21/23 [History] busPIRone HCL [Buspar] 30 mg PO BID 11/21/23 [History] diazePAM [Valium] 10 mg PO TID PRN 11/21/23 [History] traZODone HCL 300 mg PO HS 11/21/23 [History] Acetaminophen Tab [Tylenol] 650 mg PO Q6HR PRN tab 11/23/23 [Rx] Topiramate [Topamax] 150 mg PO BID 30 Days #90 tab 11/23/23 [Rx] Follow up Appointment(s)/Referral(s): Lidia Ortega, PAC [REFERRING] - 1 Week (no answer, if following here please call for a follow up appt) Dima Li MD [Primary Care Provider] - 1-2 days (Office said for patient to call office and get established as a new patient.) Patient Instructions/Handouts: Seizure/Epilepsy Discharge Instructions & Follow-Up, Topiramate (By mouth) Activity/Diet/Wound Care/Special Instructions: lots of meds in pharmacy from home Activity limited until follow-up Follow-up with primary care provider on discharge Follow-up with neurologist outpatient Continue taking medications as prescribed Follow up with neurologist or have primary refer to a neurologist as soon as possible Discharge Disposition: HOME SELF-CARE
--- NOTE | 2023-11-24 10:18 | P.PN ---
Subjective Progress Note Date: 11/23/23 Patient was seen for a follow-up. Patient is doing well. Patient states she is having some headache and her stomach is hurting. She wants to go pee. She denies any visual disturbance. No blurred vision. Objective - Vital Signs Vital signs: Vital Signs Temp 97.6 F 11/23/23 08:28 Pulse 63 11/23/23 08:28 Resp 18 11/23/23 08:28 BP 114/77 11/23/23 08:28 Pulse Ox 100 11/23/23 08:28 FiO2 Intake & Output 11/22/23 11/23/23 11/23/23 18:59 06:59 18:59 Intake Total 600 444 Balance 600 444 Intake: Intake, IV Titration 600 Amount Sodium Chloride 0.9% 1, 600 000 ml @ 75 mls/hr IV . [id number] [facility] Rx#:[id number] Oral 444 Other: Voiding Method Toilet # Voids 1 4 - Exam Patient's mentation appears stable. Pupils are equal. No conjunctival injection. Face is symmetric. Rest of the examination unchanged. - Labs CBC & Chem 7: 11/23/23 05:41 11/23/23 05:41 Labs: Abnormal Lab Results - Last 24 Hours (Table) 11/22/23 11/23/23 11/23/23 Range/Units 14:24 05:41 05:41 RBC 4.08 L (4.10-5.20) X 10*6/uL MCV 99.3 H (80.0-97.0) FL MCH 32.4 H (27.0-32.0) pg Chloride 113 H (96-109) mmol/L Carbon Dioxide 19.9 L (21.6-31.8) mmol/L Est GFR (CKD-EPI) 58 L (>=60) Urine Appearance Cloudy H (Clear) Urine WBC 6 H (0-5) /hpf Urine Bacteria Occasional H (None) /hpf Urine Yeast (Budding) Few H (None) /hpf Urine Opiates Screen Detected H (NotDetected) U Benzodiazepines Scrn Detected H (NotDetected) U Marijuana (THC) Screen Detected H (NotDetected) Assessment and Plan Assessment: * Seizure disorder, came with breakthrough seizure. Patient usually gets minor seizure, which appears like absence seizures, which can happen daily. However her presenting seizure was atypical, grand mal, lasted for 10 minutes, which she usually does not have. Patient states she is completely compliant with th e medication. * Developmental delays Plan: * EEG was abnormal due to presence of frontal intermittent rhythmic delta activity, which may suggest toxic metabolic encephalopathy or underlying structural abnormality. Presence of sporadic paroxysmal episodes of generalized 3 Hz spike and slow wave, frontally maximal, lasting for 3-4 seconds, suggestive of tendency for generalized seizures. It also showed frequent focal slowing in the bitemporal region, left more than right, suggestive of focal cortical neuronal dysfunction. * Based upon the EEG findings, frequent seizures, agree with increasing dose of Topamax up to 150 mg twice daily (was taking Topamax 100 mg twice daily). * Topamax level 8.8 (2-20) * Neurologically clear for discharge. * Recommend patient follow-up with neurologist in 1 to 2 weeks for further management of epilepsy.
== END 2023-11-23 14:51 | disposition home or self-care (01) | DRG 101 ==
LOC: EC 23:14 → 5NMEDONC 11-21 01:24
PROVIDERS: ADMIT Internal Medicine; ATTEND Internal Medicine
PROC: 4A10X4Z Monitoring of Central Nervous Electrical Activity, External Approach (ICD-10-PCS; principal; 2023-11-22)
DX: G40.909 Epilepsy, unspecified, not intractable, without status epilepticus (principal); R32 Unspecified urinary incontinence; F81.9 Developmental disorder of scholastic skills, unspecified; Z79.899 Other long term (current) drug therapy; Z90.49 Acquired absence of other specified parts of digestive tract; Z95.0 Presence of cardiac pacemaker
CPT/HCPCS: 36415; 80048; 80201; 80306; 81001; 83605; 83735; 85025; 95816; 96361; 96374; 96376; 99285

== ENCOUNTER 2024-07-09 07:43 | Inpatient (IN) | payer MEDICARE, OTHER ==
--- NOTE | 2024-07-09 07:55 | ED ---
General Adult HPI - General Stated complaint: ankle injury Time Seen by Provider: 07/09/24 07:45 Source: patient, EMS, RN notes reviewed Mode of arrival: EMS Limitations: no limitations - History of Present Illness Initial comments: Patient is a 44-year-old female present to the emergency department with left ankle injury. Incident occurred prior to arrival. Patient states she was sleepwalking and she fell. Patient states occasionally she does sleepwalk. Patient denies having head injury. No neck or back pain. No chest pain or dyspnea. No abdominal pain. Patient denies any other area of injury. - Related Data Home Medications Medication Instructions Recorded Confirmed Brexpiprazole [Rexulti] 3 mg PO DAILY 11/21/23 11/21/23 FLUoxetine HCL [PROzac] 40 mg PO DAILY 11/21/23 11/21/23 Famotidine [Pepcid] 20 mg PO BID 11/21/23 11/21/23 Gabapentin [Neurontin] 400 mg PO TID 11/21/23 11/21/23 Ibuprofen [Motrin] 800 mg PO TID PRN 11/21/23 11/21/23 busPIRone HCL [Buspar] 30 mg PO BID 11/21/23 11/21/23 diazePAM [Valium] 10 mg PO TID PRN 11/21/23 11/21/23 traZODone HCL 300 mg PO HS 11/21/23 11/21/23 Previous Rx's Medication Instructions Recorded Acetaminophen Tab [Tylenol] 650 mg PO Q6HR PRN tab 11/23/23 Topiramate [Topamax] 150 mg PO BID 30 Days #90 tab 11/23/23 Allergies Allergy/AdvReac Type Severity Reaction Status Date / Time No Known Allergies Allergy Verified 07/09/24 07:54 Review of Systems ROS Statement: Those systems with pertinent positive or pertinent negative responses have been documented in the HPI. ROS Other: All systems not noted in ROS Statement are negative. Constitutional: Denies: fever Eyes: Denies: eye pain ENT: Denies: ear pain Respiratory: Denies: cough, dyspnea Cardiovascular: Denies: chest pain Endocrine: Denies: fatigue Gastrointestinal: Denies: abdominal pain Musculoskeletal: Reports: as per HPI Neurological: Denies: headache, weakness Past Medical History Past Medical History: Seizure Disorder Additional Past Medical History / Comment(s): developmental delay History of Any Multi-Drug Resistant Organisms: None Reported Past Surgical History: Cholecystectomy, Pacemaker Past Anesthesia/Blood Transfusion Reactions: No Reported Reaction Type of Cardiac Device: Unknown Device Placement Date:: april 2022 Past Psychological History: Bipolar Smoking Status: Vaper Past Alcohol Use History: None Reported Past Drug Use History: None Reported General Exam Limitations: no limitations General appearance: alert, in no apparent distress Head exam: Present: atraumatic, normocephalic Eye exam: Present: normal appearance Neck exam: Present: normal inspection. Absent: tenderness Respiratory exam: Present: normal lung sounds bilaterally. Absent: chest wall tenderness Cardiovascular Exam: Present: regular rate, normal rhythm Expanded Peripheral pulses: 2+: Dorsalis Pedis (L) GI/Abdominal exam: Present: soft. Absent: tenderness Extremities exam: Present: other (Tenderness left proximal tib-fib as well as left ankle with left ankle inverted, possible deformity). Absent: calf tenderness Back exam: Absent: vertebral tenderness Neurological exam: Present: alert. Absent: motor sensory deficit Psychiatric exam: Present: normal affect, normal mood Skin exam: Present: normal color Course Vital Signs 07/09/24 07/09/24 07:46 09:10 Temperature 97.8 F 97.7 F Pulse Rate 70 61 Respiratory 18 16 Rate Blood Pressure 126/81 118/78 O2 Sat by Pulse 94 L 98 Oximetry - Reevaluation(s) Reevaluation #1: 07/09/24 08:19 Orthopedics paged 07/09/24 09:54 Dima Mcmahon did called back earlier and stated he would call back again. Case was discussed with Dr. Goodman rosas who will admit covering orthopedic trauma call. Procedures - Orthopedic Splinting/Casting Injury #1 Side: left Lower Extremity Injury Location: long leg Lower Extremity Immobilizer: posterior splint, stirrup splint Medical Decision Making - Medical Decision Making Was pt. sent in by a medical professional or institution (, PA, [employer] ARCHITECT, urgent care, hospital, or fdc...) When possible be specific @ -No Did you speak to anyone other than the patient for history (EMS, parent, family, police, friend...)? What history was obtained from this source @ -MS helps provide history of the incident and transportation and medications provided Did you review nursing and triage notes (agree or disagree)? Why? @ -I reviewed and agree with nursing and triage notes Were old charts reviewed (outside hosp., previous admission, EMS record, old EKG, old radiological studies, urgent care reports/EKG's, fdc records)? Report findings @ -No old charts were reviewed Differential Diagnosis (chest pain, altered mental status, abdominal pain women, abdominal pain men, vaginal bleeding, weakness, fever, dyspnea, syncope, headache, dizziness, GI bleed, back pain, seizure, CVA, palpatations, mental health, musculoskeletal)? @ -Differential Musculoskeletal Muscular strain, contusion, ligament sprain, fracture, arthritis, septic arthritis, bursitis, cellulitis, muscle spasm, nerve compression, DVT, arterial occlusion, herpes zoster, electrolyte abnormality, tumor.... This is not meant to be in all inclusive list EKG interpreted by me (3pts min.). @ -As above X-rays interpreted by me (1pt min.). @ -Left ankle and left tib-fib x-ray shows spiral distal shaft tibia fracture and proximal fibula fracture. also potential fractures of the distal second third and fourth metatarsals. CT interpreted by me (1pt min.). @ -None done U/S interpreted by me (1pt. min.). @ -None done What testing was considered but not performed or refused? (CT, X-rays, U/S, labs)? Why? @ -None What meds were considered but not given or refused? Why? @ -None Did you discuss the management of the patient with other professionals (professionals i.e. , PA, [employer]ITECT, lab, RT, psych nurse, older adult social work specialist, oil exploration engineer, teacher, sheriff's officer, case resource manager)? Give summary @ -Dr. Ewing's Was smoking cessation discussed for >3mins.? @ -No Was critical care preformed (if so, how long)? @ -No Were there social determinants of health that impacted care today? How? (Homelessness, low income, unemployed, alcoholism, drug addiction, transportation, low edu. Level, literacy, decrease access to med. care, assisted, rehab)? @ -No Was there de-escalation of care discussed even if they declined (Discuss DNR or withdrawal of care, Hospice)? DNR status @ -No What co-morbidities impacted this encounter? (DM, HTN, Smoking, COPD, CAD, Cancer, CVA, ARF, Chemo, Hep., AIDS, mental health diagnosis, sleep apnea, morbid obesity)? @ -Developmental delay, lives with family Was patient admitted / discharged? Hospital course, mention meds given and route, prescriptions, significant lab abnormalities, going to OR and other pertinent info. @ -Patient presents with fall with significant left lower leg injury. Splint placed. Patient will need Ortho care. Undiagnosed new problem with uncertain prognosis? @ -No Drug Therapy requiring intensive monitoring for toxicity (Heparin, Nitro, Insulin, Cardizem)? @ -No Were any procedures done? @ -Splint, see above Diagnosis/symptom? @ -Distal tibia shaft , proximal fibula fracture, distal metatarsal fractures 2 through 4 Acute, or Chronic, or Acute on Chronic? @ -Acute Uncomplicated (without systemic symptoms) or Complicated (systemic symptoms)? @ -Default Side effects of treatment? @ -No Exacerbation, Progression, or Severe Exacerbation? @ -No Poses a threat to life or bodily function? How? (Chest pain, USA, MS, pneumonia, PE, COPD, DKA, ARF, appy, cholecystitis, CVA, Diverticulitis, Homicidal, Suicidal, threat to staff... and all critical care pts) @ -No Disposition Clinical Impression: Fracture of distal end of left tibia, Fracture of proximal end of left fibula, Metatarsal fracture Disposition: ADMITTED IP TO THIS HOSP Is patient prescribed a controlled substance at d/c from ED?: No Referrals: Dima Li MD [Primary Care Provider] - 1-2 days Time of Disposition: 09:54
[2024-07-09] MEDS: HYDROmorphone 1 MG/ML 1 ML SYRINGE IVP STA ×2 (07:56→09:10)
--- NOTE | 2024-07-09 08:22 | XR ---
EXAMINATION TYPE: XR tibia fibula LT DATE OF EXAM: 07/09/2024 COMPARISON: NONE HISTORY: Pain TECHNIQUE: Two views are submitted. FINDINGS: There is a displaced fracture distal diaphysis tibia. Displaced fracture of proximal diaphysis fibula . Suspect a fracture on the lateral view of the distal fibula anteriorly. Mineralization normal. Ankle mortise symmetric. IMPRESSION: 1. Displaced fracture proximal fibula and distal tibia. 2. Lateral view suggests hairline fracture through the anterior margin of the distal fibula. [facility], , 07/09/2024 8:20 AM
--- NOTE | 2024-07-09 08:23 | XR ---
EXAMINATION TYPE: XR ankle limited LT DATE OF EXAM: 07/09/2024 COMPARISON: NONE HISTORY: Pain FINDINGS: Three views of the ankle demonstrate displaced fracture distal tibia. Lateral view suggests that ther e is likely a hairline fracture through the anterior fibula are less likely through the distal tibia. Suspect there are fractures involving the distal second, third and fourth metatarsals of indetermina te age possibly chronic correlate with point tenderness. IMPRESSION: 1. Displaced fracture distal tibia. 2. Lateral view suggests hairline fracture through the anterior margin of the distal fibula. 3. Age-indeterminate fractures distal second, third and fourth metatarsals correlate with point tende rness. [facility], , 07/09/2024 8:21 AM
--- NOTE | 2024-07-09 09:16 | XR ---
EXAMINATION TYPE: XR foot limited LT DATE OF EXAM: 07/09/2024 COMPARISON: NONE HISTORY: Pain TECHNIQUE: Two views are submitted. FINDINGS: Deformities of the second through fourth metatarsals, age indeterminate fractures. Hypertrophic arthr opathy of the first MTP. Soft tissue edema. IMPRESSION: 1. Age-indeterminate fractures distal second through fourth metatarsals. [facility], , 07/09/2024 9:14 AM
[2024-07-09] MEDS ORDERED: NALOXONE 0.4 MG/ML 1 ML VIAL IV PRN (09:55)
[2024-07-09] MEDS: SODIUM CHLORIDE 0.9% 1,000 ML IV SCH (10:01)
--- NOTE | 2024-07-09 10:04 | P.PN ---
Progress Note - Text Progress Note Date: 07/09/24 Full consult pending. Spoke with ED. Pt fell causing fracture. Distal tibial shaft fracture, spiral displaced. Splinted by ED. NWB, ICe elevation. Plan for surgery tomorrow for IMN fixation.
[2024-07-09 10:15] LABS: Basophils % (A) 0 %; Eosinophils % (A) 0 %; HCT 41.9 % (34.0-46.0); HGB 13.2 gm/dL (11.4-16.0); Hypochromasia Slight; Lymphocytes # (A) 1.2 k/uL (1.0-4.8); Lymphocytes % (A) 10 %; MCH 32.3 pg (25.0-35.0); MCHC 31.5 g/dL (31.0-37.0); MCV 102.3 fL (80.0-100.0); Mean Platelet Volume 8.6; Monocytes # (A) 0.4 k/uL (0-1.0); Monocytes % (A) 4 %; Neutrophils # (A) 10.5 k/uL (1.3-7.7); Neutrophils % (A) 86 %; Platelet Count 213 k/uL (150-450); RDW 11.8 % (11.5-15.5); WBC 12.2 k/uL (3.8-10.6)
[2024-07-09 10:23] LABS: INR 0.9 (<1.2); Partial Thromboplastin Time 24.3 sec (22.0-30.0); Prothrombin Time 10.4 sec (10.0-12.5)
[2024-07-09 10:28] LABS: ALT 15 U/L (4-34); AST 28 U/L (14-36); African American GFR (CKD) 70 (>60 ml/min/1.73 sqM); Albumin 3.5 g/dL (3.5-5.0); Alkaline Phosphatase 67 U/L (38-126); Anion Gap 7 mmol/L; Blood Urea Nitrogen 29 mg/dL (7-17); Calcium 8.1 mg/dL (8.4-10.2); Carbon Dioxide 19 mmol/L (22-30); Chloride 117 mmol/L (98-107); Glucose 92 mg/dL (74-99); Non-African American GFR(CKD) 61 (>60 ml/min/1.73 sqM); Potassium 3.9 mmol/L (3.5-5.1); Sodium 143 mmol/L (137-145); Total Bilirubin 0.6 mg/dL (0.2-1.3); Total Protein 6.5 g/dL (6.3-8.2)
[2024-07-09] MEDS: HYDROmorphone 1 MG/ML 1 ML SYRINGE IVP PRN (11:07)
--- NOTE | 2024-07-09 11:19 | P.HPOR ---
History of Present Illness H&P Date: 07/09/24 Chief Complaint: Left tibia fracture Patient is a 44-year-old female who was brought to [facility] ER after falling at home while sleepwalking. She had immediate pain and deformity of the left lower extremity and was able to weight-bear. Upon arrival to the hospital, multiple imaging and lab tests were done. Images demonstrated a distal third spiral tibial shaft fracture, a transverse proximal fibular fracture and age- indeterminate multiple metatarsal fractures of the left foot. We were contacted by the emergency room staff, I was able to discuss the case with my attending physician. Patient was admitted under our orthopedic care with plan for surgical intervention. Patient was evaluated today at bedside, she is resting in the ER. She appears comfortable, a posterior splint with lateral support is present with Shashank bandage. Patient is having only discomfort in the lower leg with movement. She denies any right lower extremity pain. She denies any bilateral upper extremity pain. She denies any cervical, thoracic or lumbar pain. She denies any previous surgery to the left lower extremity. She denies any numbness or tingling to the area at this time. She denies any headaches, lightheadedness, chest pain or shortness of breath. Review of Systems Constitutional: Reports as per HPI Past Medical History Past Medical History: Seizure Disorder Additional Past Medical History / Comment(s): developmental delay History of Any Multi-Drug Resistant Organisms: None Reported Past Surgical History: Cholecystectomy, Pacemaker Additional Past Surgical History / Comment(s): Left ankle fracture Past Anesthesia/Blood Transfusion Reactions: No Reported Reaction Type of Cardiac Device: Unknown Device Placement Date:: april 2022 Past Psychological History: Bipolar Smoking Status: Vaper Past Alcohol Use History: None Reported Past Drug Use History: None Reported Medications and Allergies Home Medications Medication Instructions Recorded Confirmed Type Gabapentin [Neurontin] 400 mg PO TID 11/21/23 07/09/24 History busPIRone HCL [Buspar] 30 mg PO BID 11/21/23 07/09/24 History diazePAM [Valium] 10 mg PO TID 11/21/23 07/09/24 History traZODone HCL 300 mg PO HS 11/21/23 07/09/24 History Topiramate [Topamax] 150 mg PO BID 30 Days #90 tab 11/23/23 07/09/24 Rx QUEtiapine FUMARATE [SEROquel] 200 mg PO HS 07/09/24 07/09/24 History Allergies Allergy/AdvReac Type Severity Reaction Status Date / Time No Known Allergies Allergy Verified 07/09/24 11:08 Physical Examination Left lower extremity: Posterior splint with lateral support is in good position condition, there is Shashank bandage fixation noted. Patient's sensation to light touch both proximal distal to the splint are intact. The skin is warm to touch both proximal distal to the splint. She is able to wiggle the toes and no difficulty. Range of motion of the knee along with hip reproduce no pain. Sensory exam to light touch is intact throughout the extremity. Results - Labs Labs: Abnormal Lab Results - Last 24 Hours (Table) 07/09/24 07/09/24 Range/Units 10:06 10:06 WBC 12.2 H (3.8-10.6) k/uL MCV 102.3 H (80.0-100.0) fL Neutrophils # 10.5 H (1.3-7.7) k/uL Chloride 117 H (98-107) mmol/L Carbon Dioxide 19 L (22-30) mmol/L BUN 29 H (7-17) mg/dL Creatinine 1.11 H (0.52-1.04) mg/dL Calcium 8.1 L (8.4-10.2) mg/dL H & H 07/09/24 Range/Units 10:06 Hgb 13.2 (11.4-16.0) gm/dL Hct 41.9 (34.0-46.0) % Coagulation 07/09/24 Range/Units 10:06 INR 0.9 (<1.2) Result Diagrams: 07/09/24 10:06 07/09/24 10:06 - Diagnostic results Ankle/Foot x-ray: report reviewed, image reviewed Assessment and Plan Assessment: Left distal third spiral tibial shaft fracture Left proximal transverse fibular fracture Age-indeterminate left foot metatarsal fractures, second, third, fourth Other medical comorbidities Plan: Dr. Platt was able to discuss the case with the ER physician after reviewing images. Patient was admitted under our orthopedic care with plan for surgical intervention. Surgery is scheduled for 07/10/2024 N.p.o. after midnight Maintain posterior splint at this time, nonweightbearing Urinary catheter placement GI/ DVT prophylaxis, subcu medication after surgery Medical recommendations appreciated Pain control, oral and IV as needed Ice and elevate the extremity Further recommendations to follow Time with Patient: Less than 30
--- NOTE | 2024-07-09 12:30 | XR ---
EXAMINATION TYPE: XR chest 1V portable DATE OF EXAM: 07/09/2024 COMPARISON: 07/09/2024 HISTORY: Presurgical TECHNIQUE: Single frontal view of the chest is obtained. FINDINGS: No pleural effusion or pneumothorax. The cardiac silhouette size is within normal limits. The osseous structures are intact. Metallic device overlying the left hemithorax. Slight elevation left hemidiaphragm noted. Vague nodular density overlying the anterior margin of the first rib. Incr eased density along the medial margin of the right upper lobe. IMPRESSION: 1. Vague increased density along the medial margin of the right upper lobe. Suspect this may be relat ed to reduced inspiration and superimposed structures. Cannot exclude infiltrate\adenopathy. Recommen d follow-up chest x-ray with PA and lateral views. 2. Vague nodular density overlying the anterior margin of the left first rib. This likely is related to osseous changes of the first rib. 3. No overt failure. [facility], , 07/09/2024 12:28 PM
[2024-07-09] MEDS: TOPIRAMATE 100 MG TAB PO SCH (13:16)
[2024-07-09] MEDS: ACETAMINOPHEN TAB 325 MG TAB PO PRN (13:44)
[2024-07-09] MEDS: HYDROmorphone 0.5 MG/0.5 ML SYRINGE IVP PRN (14:47)
[2024-07-09] MEDS: diazePAM 5 MG TAB PO SCH (16:01)
[2024-07-09] MEDS: GABAPENTIN 100 MG CAP PO SCH (16:01)
[2024-07-09] MEDS: busPIRone HCl 10 MG TAB PO SCH (20:48)
[2024-07-09] MEDS: traZODone HCL 100 MG TAB PO SCH (20:49)
[2024-07-09] MEDS: HEPARIN SODIUM,PORCINE 5,000 UNIT/ML 1 ML VIAL SQ SCH (20:49)
[2024-07-09] MEDS: QUEtiapine 200 MG TAB PO SCH (21:26)
[2024-07-10] MEDS: PANTOPRAZOLE 40 MG TABLET PO SCH (06:07)
--- NOTE | 2024-07-10 07:39 | XR ---
EXAMINATION TYPE: XR chest 1V DATE OF EXAM: 07/10/2024 COMPARISON: 07/09/2024 HISTORY: Presurgical TECHNIQUE: Single frontal view of the chest is obtained. FINDINGS: There is no focal air space opacity, pleural effusion, or pneumothorax seen. The cardiac silhouette size is within normal limits. The osseous structures are intact. Subsegmental consolidat ion left lung base favor atelectasis. Cardiac device with leads overlying the left thorax. IMPRESSION: Left basilar atelectasis favored over infiltrate correlate clinically. [facility], , 07/10/2024 7:37 AM
[2024-07-10 08:26] LABS: Basophils # (A) 0.04 X 10*3/uL (0.00-0.10); Basophils % (A) 0.6 %; Eosinophils # (A) 0.14 X 10*3/uL (0.04-0.35); HCT 40.4 % (37.2-46.3); HGB 12.6 g/dL (12.0-15.0); Lymphocytes # (A) 1.34 X 10*3/uL (0.90-5.00); Lymphocytes % (A) 19.1 %; MCH 32.1 pg (27.0-32.0); MCHC 31.2 g/dL (32.0-37.0); MCV 102.8 FL (80.0-97.0); Mean Platelet Volume 11.9 FL (9.5-12.2); Monocytes # (A) 0.58 X 10*3/uL (0.20-1.00); Monocytes % (A) 8.3 %; NRBC Per 100 WBC 0 X 10*3/uL (0.00-0.01); Neutrophils # (A) 4.88 X 10*3/uL (1.80-7.70); Neutrophils % (A) 69.7 %; Platelet Count 188 X 10*3/uL (140-440); RBC 3.93 X 10*6/uL (4.10-5.20); RDW 11.7 % (11.5-14.5)
[2024-07-10 09:29] LABS: ALT 21 U/L (8-44); AST 19 U/L (13-35); Albumin 3.9 g/dL (3.8-4.9); Albumin/Globulin Ratio 1.39 Ratio (1.60-3.17); Alkaline Phosphatase 99 U/L (41-126); BUN/Creat Ratio 22.82 Ratio (12.00-20.00); Blood Urea Nitrogen 25.1 mg/dL (9.0-27.0); Calcium 8.7 mg/dL (8.7-10.3); Carbon Dioxide 21.7 mmol/L (21.6-31.8); Chloride 108 mmol/L (96-109); Globulin 2.8 g/dL (1.6-3.3); Glucose 112 mg/dL (70-110); Potassium 4.1 mmol/L (3.5-5.5); Sodium 140 mmol/L (135-145); Total Bilirubin 0.3 mg/dL (0.3-1.2); Total Protein 6.7 g/dL (6.2-8.2)
--- NOTE | 2024-07-10 10:18 | P.PN ---
Subjective Progress Note Date: 07/10/24 Principal diagnosis: Left tibia shaft fracture, left fibular fracture Patient evaluated today at bedside, she is resting in her hospital bed on the medical/surgical floor. She does complain about significant discomfort to the left lower extremity. The posterior splint remains in good position condition. patient has refused the urinary catheter at this time, I explained it is very important and replaces prior to surgery. I did discuss with her that I would just her pain medication. Patient's been evaluated by other medical specialties. Surgery is scheduled for later today Objective - Vital Signs Vital signs: Vital Signs Temp 98.3 F 07/10/24 07:41 Pulse 78 07/10/24 07:41 Resp 17 07/10/24 07:41 BP 114/72 07/10/24 07:41 Pulse Ox 92 L 07/10/24 07:41 FiO2 Intake & Output 07/09/24 07/10/24 07/10/24 18:59 06:59 18:59 Weight 127.006 kg 127.006 kg Other: Voiding Method External Catheter # Voids 2 - Exam Left lower extremity: Posterior splint with lateral support is in good position condition, there is Shashank bandage fixation noted. Patient's sensation to light touch both proximal di stal to the splint are intact. The skin is warm to touch both proximal distal to the splint. She is able to wiggle the toes and no difficulty. Range of motion of the knee along with hip reproduce no pain. Sensory exam to light touch is intact throughout the extremity. - Labs CBC & Chem 7: 07/10/24 03:01 07/10/24 03:01 Labs: Abnormal Lab Results - Last 24 Hours (Table) 07/09/24 07/10/24 07/10/24 Range/Units 10:06 03:01 03:01 RBC 3.93 L (4.10-5.20) X 10*6/uL MCV 102.8 H (80.0-97.0) FL MCH 32.1 H (27.0-32.0) pg MCHC 31.2 L (32.0-37.0) g/dL Chloride 117 H (98-107) mmol/L Carbon Dioxide 19 L (22-30) mmol/L BUN 29 H (7-17) mg/dL Creatinine 1.11 H (0.52-1.04) mg/dL BUN/Creatinine Ratio 22.82 H (12.00-20.00) Ratio Glucose 112 H (70-110) mg/dL Calcium 8.1 L (8.4-10.2) mg/dL Albumin/Globulin Ratio 1.39 L (1.60-3.17) Ratio Assessment and Plan Assessment: Left distal third spiral tibial shaft fracture Left proximal transverse fibular fracture Age-indeterminate left foot metatarsal fractures, second, third, fourth Other medical comorbidities Plan: Surgery scheduled for 07/10/2024 Continue n.p.o. diet Urinary catheter placement Maintain posterior splint at this time, nonweightbearing GI/ DVT prophylaxis, subcu medication after surgery Medical recommendations appreciated Pain control, oral and IV as needed Ice and elevate the extremity Will continue to follow during hospital stay Time with Patient: Less than 30
[2024-07-10] MEDS: HYDROmorphone 1 MG/ML 1 ML SYRINGE IVP PRN (14:18)
--- NOTE | 2024-07-10 14:38 | P.PN ---
Progress Note - Text Progress Note Date: 07/10/24 patient seen and examined this morning. She is resting comfortably in bed. His splinted left lower extremity. She will fall at home causing her left lower extremity injury. She is on the left spiral distal one third tibial shaft fracture. She is admitted hospital and plans are for fixation today. We discussed this at length as well as alternatives and lateral course. She agrees with fixation as the best option. Orthopedic Surgery Risk Review Holli Nathan is a 44 FEMALE presenting for evaluation of sudden onset LLE pain, inability to ambulate after FALL FROM STANDING It was my pleasure to have seen and examined Holli Nathan In our visit today we have had a chance to go over subjective complaints, physical examination findings and treatments including the natural course history without intervention and various interventional options. [HER imaging demonstrates LEFT DISTAL ONE THIRD TIBIAL SHAFT FRACTURE SPIRAL IN NATURE DISPLACED SHORTENED AND ROTATED. SHE ALSO HAS MULTIPLE METATARSAL FRACTURES INTERMITTENTLY DISPLACEDOn physical exam, Holli Nathan demonstrates pain with motion of LEFT LOWER EXTREMITY, which is NV intact at this time. I have explained to the patient that this fracture needs stabilization. Based on the patients imaging, physical exam, and the rapid progression and disabling nature of her symptoms, at this time I recommend surgery in the form or a: OPEN TREATMENT LEFT TIBIAL SHAFT FRACTURE WITH INTRAMEDULLARY NAIL FIXATIONI discussed the risk and benefits of this procedure at length with Holli Nathan Questions were invited and answered, and the patient wishes to proceed as outlined below. Currently, I am recommendin. open treatment left tibial shaft fracture with intramedullary nail fixation 2. Review of surgical risks and benefits as well as an educational packet on the proposed surgical procedure. Risks: All surgical procedures come with inherent risks, including those related to positioning, anesthesia, intraoperative findings, and postoperative complications. It is important to understand that surgery does not come with any guarantee of a successful outcome as complications and adverse events are always possible. The patient was given a handout discussing the surgical procedure and risks associated with the intervention, both of which were discussed with the patient. These risks include but are not limited to the following: - Experiencing same, different or even worse symptoms compared to before surgery. - Requiring further surgery or other forms of treatment presently or at some time in the future . - On an extreme but fortunately relatively rare basis severe complication such as blindness, stroke, heart attack, temporary and/or permanent nerve injury, paralysis, coma, or may occur, sometimes without known explanation. - Surgical complications may include but are not limited to risk of infection, fluid accumulation in the surgical dissection site, including a seroma or hematoma, that requires additional surgery, wound drainage, bleeding, new numbness or weakness, vision changes/loss, spinal fluid leakage, non-healing and/or infected incision, headaches, difficulty or inability to swallow, hoarseness, hemopneumothorax, pneumothorax, injury to nerves, spinal cord, blood vessels, lymphatics or other vital organs (i.e., bowel injury, injury to the great vessels); heterotopic bone formation; complications related to the hardware such as screws, rods, including misplaced hardware, device failure, hardware fracture/breakage, or hardware loosening; retained surgical instrumentations or devices and the need for further surgery. - Medical risks of the planned surgery include but are not limited to generalized Infections to the whole body or local areas outside of the surgical site (sepsis), heart attack, bleeding, anaphylaxis, meningitis, seizure, epilepsy, hearing loss, burn good, laceration of the head or other areas of the body, bruising, hypersensitivity of the skin, bladder over distension; allergic reaction; shoulder injury related to positioning; fat, blood and air clots to other areas of the body like heart, lungs, brain; failure of internal organs such as lungs, kidneys, liver and excessive bleeding. If blood transfusions are necessary, note that transfusions may cause intolerance reactions such as anaphylaxis or other complex reactions. Despite best efforts, the results of surgery might not heal in terms of bone, soft tissues such as skin, fascia, ligaments, and joints. [facility] has multiple operating rooms with single and overlapping rooms running daily. They currently function under the required guidelines as produced by the [employer] Committee with regards to the overlapping rooms and will continue to comply with changes to this policy as they occur. The requirements include and are complied with as follows: (1) the critical portions of the overlapping rooms will not occur at the same time, (2) the attending physician will be physically present during the critical portions of the pro cedure and immediately available during the entire case, and (3) a back-up attending is designated should the primary attending not be immediately available. The patient has had a chance to review all the listed information, has been given print outs detailing this information, and has had all his/her questions answered to their satisfaction. It was my pleasure to have seen and examined Holli Nathan. In our visit today we have had a chance to go over my understanding of our patient's current condition, the natural course history without intervention and various interventional options. Questions were invited and answered, and the patient wishes to proceed as outlined above. I have seen and examined the patient for 25 minutes and we have spent more than 50% of the time in repeat and detailed counseling about the patient's condition, its natural course history with out and as much as can be predicted with surgery and re-review of various surgical treatment options. In conclusion, Holli Nathan requested we proceed with the above suggested surgery and are willing to accept risks and limitations of the suggested surgery as nature of the disease process and our best attempts at treatment for the condition. Thank you again for allowing us to be part of your patient's care. Please don't hesitate to contact me if you have any further questions. Signed and authenticated by: Andrew [facility] [address] [place], [address] [address]
--- NOTE | 2024-07-10 14:50 | CONS ---
CONSULTATION REASON FOR CONSULTATION: Advice regarding seizures and preoperative medical clearance. HISTORY OF PRESENT ILLNESS: This is a 44-year-old woman with a past medical history of multiple medical problems including seizure disorder, developmental delay. Apparently was sleepwalking and fell and suffered a spiral fracture of the left femur, fibula and as well as metatarsal fracture of the foot. The patient was admitted for further evaluation and treatment. There is no history of any fever, rigors, or chills. Pulse ox 98% on room air. The patient is following Dr. Back for the seizures. PAST MEDICAL HISTORY: Reviewed includes seizure disorder, developmental delay. Rest of the history and rest of the chart is also reviewed. HOME MEDICATIONS: Trazodone. Dose and rest of medications reviewed. ALLERGIES: None. FAMILY HISTORY: No history of heart disease or strokes in the family. SOCIAL HISTORY: History of vaping. REVIEW OF SYSTEMS: Fourteen-point review is negative except as mentioned earlier. PHYSICAL EXAMINATION: VITAL SIGNS: Pulse 61, blood pressure 118/70, respirations 16. HEENT: Conjunctivae normal. CARDIOVASCULAR: S1, S2. RESPIRATIONS: Breath sounds diminished at the bases. No rhonchi. No crackles. ABDOMEN: Soft, nontender. LEGS: Status post fracture of the left foot. NERVOUS SYSTEM: Nonfocal. LABORATORY DATA: WBC 12.2. Creatinine is 1.11. ASSESSMENT: 1. Fall and left tibia-fibula fracture and foot fracture. 2. Seizure disorder. 3. Developmental delay. 4. Elevated WBC. 5. History of vaping. 6. Cholecystectomy. 7. History of bipolar. RECOMMENDATIONS AND DISCUSSION: This is a 44-year-old woman, who presented with multiple medical problems, we will monitor the patient closely. I would recommend incentive spirometry. Resume the home medications. DVT prophylaxis. We will follow the patient closely with you. Pulse ox is normal. I would also recommend EKG to complete the workup. Otherwise, the patient will be cleared for surgery. I would recommend close followup with primary physician regarding the above-mentioned medical issues. MMODL / IJN: [id number] /
[2024-07-10] MEDS: IV FLUID CONTINUATION 500 ML IV ONE (15:57)
[2024-07-10] MEDS: MIDAZOLAM 2 MG/2 ML VIAL IVP ONE (16:08)
[2024-07-10] MEDS: fentaNYL (PF) 50 MCG/1 ML VIAL IVP ONE (16:08)
[2024-07-10] MEDS: ONDANSETRON 4 MG/2 ML VIAL IVP STA (16:12)
[2024-07-10] MEDS: DEXAMETHASONE SOD PHOSPHATE 4 MG/ML 1 ML VIAL IVP STA (16:13)
[2024-07-10] MEDS ORDERED: TRANEXAMIC 1,000 MG/100ML-NACL 1,000 MG in SALINE 1 100ML.BAG IVPB PRN (16:39)
[2024-07-10] MEDS ORDERED: SUCCINYLCHOLINE CHLORIDE 200 MG/10 ML VIAL IV ONE (16:48)
[2024-07-10] MEDS: IV FLUID CONTINUATION 1,000 ML IV ONE (16:48)
[2024-07-10] MEDS ORDERED: PROPOFOL 10 MG/ML 20 ML VIAL IV ONE (16:48)
[2024-07-10] MEDS ORDERED: TRANEXAMIC 1,000 MG/100ML-NACL PREMIX BAG ONE (16:48)
[2024-07-10] MEDS ORDERED: MIDAZOLAM 2 MG/2 ML VIAL ONE (16:48)
[2024-07-10] MEDS ORDERED: fentaNYL (PF) 50 MCG/ML 2 ML AMP ONE (16:48)
[2024-07-10] MEDS ORDERED: HYDROmorphone (PF) 1 MG/ML ONE (16:48)
[2024-07-10] MEDS ORDERED: ROPIVACAINE 5 MG/ML 30 ML VIAL ONE (16:48)
[2024-07-10] MEDS ORDERED: LIDOCAINE 1% INJ 10MG/ML (20 ML MDV) ONE (16:48)
[2024-07-10] MEDS ORDERED: DEXAMETHASONE SOD PHOSPHATE 4 MG/ML 1 ML VIAL ONE (16:48)
--- NOTE | 2024-07-10 16:48 | P.ANPRN ---
Procedure Note - Anesthesia - Nerve Block Performed Left Adductor Canal Single Time Out Performed: Yes Date of Procedure: 07/10/24 Procedure Start Time: 16:08 Procedure Stop Time: 16:18 Location of Patient: PreOp Indication: Acute Post-Operative Pain, Requested by Surgeon Sedation Type: Sedate with meaningful contact maintained Preparation: Sterile Prep Position: Supine Needle Types: Pajunk Needle Gauge: 21 Ultrasound used to visualize needle placement: Yes Ultrasound used to observe medication spread: Yes Injectate: 0.5% Ropivacaine (see comment for volume) (30 ml + 4 mg Dexamethasone) Blood Aspirated: No Pain Paresthesia on Injection Noted: No Resistance on Injection: Normal Image Stored and Saved: Yes Events: Uneventful and Well Tolerated
[2024-07-10] MEDS: ceFAZolin 3 GM in SODIUM CHLORIDE 0.9% 100 ML IVPB PRN (16:51)
[2024-07-10] MEDS: ceFAZolin 1,000 MG in SODIUM CHLORIDE 0.9% 1,000 ML IRRIGATION ONE (17:22)
[2024-07-10] MEDS: HYDROmorphone 0.5 MG/0.5 ML SYRINGE IVP PRN (19:02)
--- NOTE | 2024-07-10 19:04 | P.OP ---
Date of Procedure: 07/10/24 Preoperative Diagnosis: LEFT TIBIAL SHAFT FRACTURE SPIRAL DISTAL 1/3 DISPLACED ROTATED SHORTENED, VALGUS LEFT FOOT MULTIPLE MT FRACTURES COMPLEX MEDICAL PATIENT Postoperative Diagnosis: LEFT TIBIAL SHAFT FRACTURE SPIRAL DISTAL 1/3 DISPLACED ROTATED SHORTENED, VALGUS LEFT FOOT MULTIPLE MT FRACTURES COMPLEX MEDICAL PATIENT Procedure(s) Performed: OPEN TREATMENT LEFT TIBIAL SHAFT FRACTURE WITH IMN FIXATION SHORT LEG SPLINT APPLICATION LLE Implants: SYNTHES TIBIAL NAIL 345 X 11 TWO DISTAL AND TWO PROXIMAL LOCKING SCREWS Anesthesia: GETA Surgeon: Andrew Platt Dinner Cook #1: Andres Mcmahon (WAS PRESENT AND ASSISTED WITH ALL ASPECTS OF THE CASE FROM POSITION TO DRESSING PLACEMENT AND SPLINT PLACEMENT) Estimated Blood Loss (ml): 150 IV fluids (ml): 1,000 Urine output (ml): 0 Pathology: none sent Condition: stable Disposition: PACU Indications for Procedure: Holli Nathan is a 44 FEMALE presenting for evaluation of sudden onset LLE pain, inability to ambulate after FALL FROM STANDING It was my pleasure to have seen and examined Holli Nathan In our visit today we have had a chance to go over subjective complaints, physical examination findings and treatments including the natural course history without intervention and various interventional options. [HER imaging demonstrates LEFT DISTAL ONE THIRD TIBIAL SHAFT FRACTURE SPIRAL IN NATURE DISPLACED SHORTENED AND ROTATED. SHE ALSO HAS MULTIPLE METATARSAL FRACTURES INTERMITTENTLY DISPLACEDOn physical exam, Holli Nathan demonstrates pain with motion of LEFT LOWER EXTREMITY, which is NV intact at this time. I have explained to the patient that this fracture needs stabilization. Based on the patients imaging, physical exam, and the rapid progression and disabling nature of her symptoms, at this time I recommend surgery in the form or a: OPEN TREATMENT LEFT TIBIAL SHAFT FRACTURE WITH INTRAMEDULLARY NAIL FIXATIONI discussed the risk and benefits of this procedure at length with Holli Nathan Questions were invited and answered, and the patient wishes to proceed as outlined below. Currently, I am recommendin. open treatment left tibial shaft fracture with intramedullary nail fixation Description of Procedure: LEFT TIBIAL SHAFT FRACTURE, SUPRAPATELLAR NAIL (OPEN) The patient was seen and examined in the preoperative area. All preoperative protocols were followed. Informed consent was obtained, risks and benefits of the procedure were discussed at length. Risks including bleeding infection damage to the surrounding tissue and risk of reoperation were discussed with the patient. Risk of anesthesia up to and including was discussed with the patient. These are outlined in the risk reviewed. They were willing to accept these risks and all of the risks of surgery. The patient was given a weight- based dose of antibiotics in the form of Ancef, Gent WBD. The patient was seen and evaluated by the anesthesia team who deemed them fit for surgery. The site was marked, the patient was willing to proceed with the procedure. The patient was transferred to the operative suite by the Department of anesthesia. They were then drifted off to sleep by the department of anesthesia and Spinal anesthesia was used. Once adequate anesthesia had been obtained the patient was carefully transferred to the operative bed. All bony prominences were padded accordingly. SCDs were placed on the nonoperative lower extremities. Arms were well padded. LLE was exposed. Tourniquet placed around the upper thigh. 1015 placed. Leg placed on bone foam ramp and secured with tape. Bump placed under hip. Preoperative briefing was done with the operative team and everyone was ready for the procedure to start. The patients LLE was then prepped and draped in the normal sterile fashion. Timeout was then performed and all parties in agreement with the procedure to be performed. Suprapatellar approach was taken to the left tibia. Incision made proximal to the patella and in line with the quad fibers. Blunt dissection taken down into the joint and the suprapatellar guide was placed through the knee. Wire was then passed and optimal starting point was achieved inline with the shaft of the tibia just lateral to the medial tibial eminence and just off the joint surface on lateral image. This was confirmed on each view. Wire was then placed. Opening reamer placed over wire. Ball tip guidewire was then placed and passed through the tibia, the fracture was reduced and held reduced. Wire was passed to the physeal scar distally. AP and Lateral confirmed. Reaming was then done over the wire until 1.0 above the nail desired. Nail was then measured and selected. Nail was then placed over the wire and the fracture was held reduced. Nail was in a good position and the fracture held the reduction well. Two distal locking screws were then placed using the perfect quinault method. Once these were placed the nail was then back slapped to create compression across this transverse type fracture. Good compression created. The jig was then placed proximally and two proximal locking screws placed. Once these were placed the leg was taken through a ROM and the fracture was stable. The bank vault attendant and jigs were removed. A 5mm end cap placed on the nail. These wounds were then irrigated copiously. The areas where the fracture was presumed open were small poke holes distally on the medial and lateral posterior sides of the lower leg. These were extended slig htly with a knife and debrided and irrigated thoroughly. Due to stripping in this area the fracture is acting more like a grade II-III open and abx had been adjusted earlier accordingly. Once all wounds were irrigated. Final images confirmed adventist of LAR of the tibia. The wounds were then closed with 0 Vicryl in the deep tendon and deep facial tissues. 2-0 Vicryl used in the superficial subq tissue and maureen in the skin. Wound edges approximated well. The patient was then dressed sterilly and placed in a well molded, well padded short leg splint on the LLE. The patient was then transferred back to their hospital bed. They were awakened by the department of anesthesia having tolerated the procedure very well with no complications. The patient was then transported to the postoperative care unit in stable condition.
[2024-07-11] MEDS: HYDROcodone/APAP 7.5-325MG 1 EACH TAB PO PRN (01:14)
[2024-07-11] MEDS ORDERED: HYDROmorphone 1 MG/ML 1 ML SYRINGE ONE (04:35)
[2024-07-11] MEDS: HYDROcodone/APAP 10-325MG 1 EACH TAB PO PRN (06:25)
--- NOTE | 2024-07-11 06:34 | P.PN ---
Subjective Progress Note Date: 07/10/24 Patient is evaluated today on the medical floor. Pending surgical repair of the left tibial fracture. Patient is asking for a drink. She is NPO for surgery. Chest xray today reveals left sided atelectasis and an incentive spirometer was ordered. Review of Systems Constitutional: Denied any fatigue denied any fever. Cardio vascular: denied any chest pain, palpitations Gastrointestinal: denied any nausea, vomiting, diarrhea Pulmonary: Denied any shortness of breath cough Neurologic denied any new focal deficits All inpatient medications were reviewed and appropriate changes in these medications as dictated in the interval history and assessment and plan. PHYSICAL EXAMINATION: GENERAL: The patient is alert and oriented x3, not in any acute distress. Well developed, well nourished. HEENT: Pupils are round and equally reacting to light. EOMI. No scleral icterus. No conjunctival pallor. Normocephalic, atraumatic. No pharyngeal erythema. No thyromegaly. CARDIOVASCULAR: S1 and S2 present. No murmurs, rubs, or gallops. PULMONARY: Chest is clear to auscultation, no wheezing or crackles. ABDOMEN: Soft, nontender, nondistended, normoactive bowel sounds. No palpable organomegaly. MUSCULOSKELETAL: No joint swelling or deformity. EXTREMITIES: No cyanosis, clubbing, or pedal edema. NEUROLOGICAL: Gross neurological examination did not reveal any focal deficits. SKIN: No rashes. Assessment Fall with left tibia-fibula/foot fracture pending surgical repair Seizure disorder Developmental delay Bipolar disorder Vape use Leukocytosis reactive, has resolved Left lung atelectasis GI prophylaxis DVT prophylaxis as per primary Full code Plan Incentive spirometer ordered Continue gabapentin topiramate Pending surgical repair of the left leg fracture today Patient remains NPO PT/OT on consult The impression and plan of care has been dictated by Bhavana Bateman Nurse Practitioner as directed. Dr. Nima MD I have performed a history and physical examination and medical decision making of this patient, discussed the same with the dictator, and agree with the dictators assessment and plan as written, documented as a scribe. Based on total visit time, I have performed more than 50% of this visit. Objective - Vital Signs Vital signs: Vital Signs Temp 98.5 F 07/11/24 02:00 Pulse 89 07/11/24 02:00 Resp 16 07/10/24 19:40 BP 114/75 07/11/24 02:00 Pulse Ox 92 L 07/11/24 02:00 FiO2 Intake & Output 07/10/24 07/10/24 07/11/24 06:59 18:59 06:59 Intake Total 1001 150 Output Total 600 1100 Balance 401 -950 Weight 127.006 kg 127.006 kg 127.006 kg Intake: IV 1001 150 Output: Urine 500 1100 Estimated Blood Loss 100 Other: Voiding Method External Catheter Indwelling Catheter Indwelling Catheter # Voids 2 - Labs CBC & Chem 7: 07/10/24 03:01 07/10/24 03:01 Labs: Abnormal Lab Results - Last 24 Hours (Table) 07/10/24 07/10/24 Range/Units 03:01 03:01 RBC 3.93 L (4.10-5.20) X 10*6/uL MCV 102.8 H (80.0-97.0) FL MCH 32.1 H (27.0-32.0) pg MCHC 31.2 L (32.0-37.0) g/dL BUN/Creatinine Ratio 22.82 H (12.00-20.00) Ratio Glucose 112 H (70-110) mg/dL Albumin/Globulin Ratio 1.39 L (1.60-3.17) Ratio Assessment and Plan Time with Patient: Less than 30
--- NOTE | 2024-07-11 15:57 | P.PN ---
Subjective Progress Note Date: 07/11/24 Patient is evaluated today on the medical floor. Pending surgical repair of the left tibial fracture. Patient is asking for a drink. She is NPO for surgery. Chest xray today reveals left sided atelectasis and an incentive spirometer was ordered. 07/11/2024 Patient is evaluated today resting in bed. She is postoperative day #1 surgical repair underwent open repair of left tibial shaft fracture with IMN fixation and a leg splint was applied to the LLE. Patient is currently on room air 93% encouraged to use the IS. Review of Systems Constitutional: Denied any fatigue denied any fever. Cardio vascular: denied any chest pain, palpitations Gastrointestinal: denied any nausea, vomiting, diarrhea Pulmonary: Denied any shortness of breath cough Neurologic denied any new focal deficits All inpatient medications were reviewed and appropriate changes in these medications as dictated in the interval history and assessment and plan. PHYSICAL EXAMINATION: GENERAL: The patient is alert and oriented x3, not in any acute distress. Well developed, well nourished. HEENT: Pupils are round and equally reacting to light. EOMI. No scleral icterus. No conjunctival pallor. Normocephalic, atraumatic. No pharyngeal erythema. No thyromegaly. CARDIOVASCULAR: S1 and S2 present. No murmurs, rubs, or gallops. PULMONARY: Chest is clear to auscultation, no wheezing or crackles. ABDOMEN: Soft, nontender, nondistended, normoactive bowel sounds. No palpable organomegaly. MUSCULOSKELETAL: No joint swelling or deformity. EXTREMITIES: No cyanosis, clubbing, or pedal edema. NEUROLOGICAL: Gross neurological examination did not reveal any focal deficits. SKIN: No rashes. Assessment Fall with left tibia-fibula/foot fracture postoperative day #1 surgical repair. Seizure disorder Developmental delay Bipolar disorder Vape use Leukocytosis reactive, has resolved Left lung atelectasis GI prophylaxis DVT prophylaxis as per primary Full code Plan Incentive spirometer ordered Continue gabapentin topiramate Stop the IV fluids Monitor electrolytes PT/OT on consult recommending JOAQUIM. Pending insurance authorization for [place] swing bed. Patient wont discharge until Sunday. The impression and plan of care has been dictated by Bhavana Bateman, Nurse Practitioner as directed. Dr. Nima MD I have performed a history and physical examination and medical decision making of this patient, discussed the same with the dictator, and agree with the dictators assessment and plan as written, documented as a scribe. Based on total visit time, I have performed more than 50% of this visit. Objective - Vital Signs Vital signs: Vital Signs Temp 98.4 F 07/11/24 07:20 Pulse 75 07/11/24 07:20 Resp 18 07/11/24 07:20 BP 114/65 07/11/24 07:20 Pulse Ox 93 L 07/11/24 07:20 FiO2 Intake & Output 07/10/24 07/11/24 07/11/24 18:59 06:59 18:59 Intake Total 1001 150 Output Total 600 1100 1700 Balance 401 -950 -1700 Weight 127.006 kg 127.006 kg Intake: IV 1001 150 Output: Urine 500 1100 1700 Estimated Blood Loss 100 Other: Voiding Method Indwelling Catheter Indwelling Catheter - Labs CBC & Chem 7: 07/10/24 03:01 07/10/24 03:01 Assessment and Plan Time with Patient: Less than 30
--- NOTE | 2024-07-11 17:15 | P.PN ---
Subjective Progress Note Date: 07/11/24 Principal diagnosis: Left tibia shaft fracture, left fibular fracture Patient evaluated today at bedside, she is resting comfortably. She does note some discomfort in that extremity. The postop splint is in good position condition. We are considering subacute rehab for this patient. She denies any headaches, lightheadedness, chest pain or shortness of breath Objective - Vital Signs Vital signs: Vital Signs Temp 98.4 F 07/11/24 07:20 Pulse 75 07/11/24 07:20 Resp 18 07/11/24 07:20 BP 114/65 07/11/24 07:20 Pulse Ox 93 L 07/11/24 07:20 FiO2 Intake & Output 07/10/24 07/11/24 07/11/24 18:59 06:59 18:59 Intake Total 1001 150 Output Total 600 1100 1700 Balance 401 -950 -1700 Weight 127.006 kg 127.006 kg Intake: IV 1001 150 Output: Urine 500 1100 1700 Estimated Blood Loss 100 Other: Voiding Method Indwelling Catheter Indwelling Catheter - Exam Left lower extremity: Splint is in good position and condition. Patient can wiggle the toes with no difficulty. Sensory exam to light touch is intact proximal and distal to the splint. - Labs CBC & Chem 7: 07/10/24 03:01 07/10/24 03:01 Assessment and Plan Assessment: Postop day #1 status post open treatment with intramedullary nail fixation of the left tibial shaft fracture Left distal third spiral tibial shaft fracture Left proximal transverse fibular fracture Age-indeterminate left foot metatarsal fractures, second, third, fourth Other medical comorbidities Plan: Maintain postop splint, nonweightbearing left lower extremity Ice and elevation techniques were discussed GI/ DVT prophylaxis, continue current medications Medical recommendations appreciated Pain control, oral and IV as needed Ice and elevate the extremity Discharge planning: Plan for discharge to subacute rehab when authorized Time with Patient: Less than 30
[2024-07-12 08:30] VITALS: BP 94/62; PULSE 86; RESP 19; TEMP 97.4
[2024-07-12 11:15] LABS: Blood Urea Nitrogen 17.2 mg/dL (9.0-27.0); Calcium 8.4 mg/dL (8.7-10.3); Carbon Dioxide 21.2 mmol/L (21.6-31.8); Chloride 112 mmol/L (96-109); Glucose 103 mg/dL (70-110); Potassium 4.1 mmol/L (3.5-5.5); Sodium 142 mmol/L (135-145)
--- NOTE | 2024-07-12 14:14 | P.PN ---
Subjective Progress Note Date: 07/12/24 Principal diagnosis: Left tibia shaft fracture, left fibular fracture Patient evaluated today at bedside, she is resting comfortably. Pain control seems better today. The postop splint is in good position condition. We are considering subacute rehab for this patient. She denies any headaches, lightheadedness, chest pain or shortness of breath Objective - Vital Signs Vital signs: Vital Signs Temp 97.4 F L 07/12/24 07:28 Pulse 86 07/12/24 07:28 Resp 19 07/12/24 07:28 BP 94/62 07/12/24 07:28 Pulse Ox 95 07/12/24 07:28 FiO2 Intake & Output 07/11/24 07/12/24 07/12/24 18:59 06:59 18:59 Output Total 3400 1300 1000 Balance -3400 -1300 -1000 Output: Urine 3400 1300 1000 Other: Voiding Method Indwelling Catheter Indwelling Catheter # Bowel Movements 1 - Exam Left lower extremity: Splint is in good position and condition. Patient can wiggle the toes with no difficulty. Sensory exam to light touch is intact proximal and distal to the splint. - Labs CBC & Chem 7: 07/10/24 03:01 07/12/24 03:04 Labs: Abnormal Lab Results - Last 24 Hours (Table) 07/12/24 Range/Units 03:04 Chloride 112 H (96-109) mmol/L Carbon Dioxide 21.2 L (21.6-31.8) mmol/L Calcium 8.4 L (8.7-10.3) mg/dL Assessment and Plan Assessment: Postop day #2 status post open treatment with intramedullary nail fixation of the left tibial shaft fracture Left distal third spiral tibial shaft fracture Left proximal transverse fibular fracture Age-indeterminate left foot metatarsal fractures, second, third, fourth Other medical comorbidities Plan: Maintain postop splint, nonweightbearing left lower extremity Ice and elevation techniques were discussed GI/ DVT prophylaxis, continue current medications Medical recommendations appreciated Pain control, oral and IV as needed Ice and elevate the extremity Discharge planning: Plan for discharge to subacute rehab on 07/14/2024 Time with Patient: Less than 30
--- NOTE | 2024-07-12 15:01 | P.DS ---
Providers Date of admission: 07/09/24 09:58 Expected date of discharge: 07/12/24 Attending physician: Andrew Platt DO Consults: 07/09/24 09:55 Consult Physician Urgent Consulting Provider: Jhon Steiner Consult Reason/Comments: medical Do you want consulting provider notified?: Yes Primary care physician: Dima Li Hospital Course: Date of admission: 07/09/2024 Date of discharge: 07/12/2024 Admission diagnosis: Displaced right midshaft tibia fracture, proximal fibular fracture, multiple age-indeterminate metatarsal fractures Discharge diagnosis: Same Attending physician: Dr. Platt Surgical procedures: Open reduction with intramedullary nail left midshaft tibia fracture Brief history: Patient is a 44-year-old female who was evaluated at [facility] after falling while sleepwalking. Apparently the patient does this often. Images demonstrated a displaced left midshaft tibia fracture and left proximal fibular fracture along with age-indeterminate metatarsal fractures. Patient was admitted under our care with plan for surgical intervention. Proper consults were placed for surgical clearance. Hospital course: Details of patient's surgery can be found in operative report. Patient tolerated the procedure well and was subsequently transported to orthopedic floor. Patient's orthopeidc and medical care was provided daily. Patient had daily laboratory tests performed for evaluation of overall blood counts. Patient had daily physical therapy to include strengthening range of motion as well as education with walker ambulation. Patient was treated with heparin for their postoperative DVT prophylaxis during their inpatient stay. Patient was noted to have a relatively uneventful postoperative course. Patient reported satisfactory pain control with oral pain medications by postoperative day 1. Patient showed satisfactory progress with physical therapy. Patient moved steadily through the program and had no difficulty meeting the goals by postoperative day 2. Given patient's otherwise satisfactory course and having met physical therapy goals, plan is to discharge patient subacute rehab on postoperative day 2. Discharge condition/disposition: Patient will be discharged subacute rehab in stable condition. Discharge medications: Instructions are given on resumption of patient's normal daily medications per primary care recommendation, in addition patient will be prescribed [place] 7.5 mg / 325 mg, aspirin 325 mg, Senna S. Discharge instructions: 1. Nonweightbearing left lower extremity 2. Leave splint in place at this time 3. Keep splint clean and dry when showering 4. Aspirin 325 mg daily for DVT prophylaxis 5. Plan for follow-up in advanced orthopedics in 10 days, please contact office with any acute issues or questions [phone] Procedures: Intramedullary nail left midshaft tibia fracture, postop splint Patient Condition at Discharge: Good Plan - Discharge Summary New Discharge Prescriptions: New Aspirin 325 mg PO DAILY #30 tab cefaDROXiL [Duricef] 500 mg PO Q12HR 5 Days #10 cap diazePAM [Valium] 10 mg PO TID PRN #9 tab PRN Reason: Anxiety Gabapentin [Neurontin] 400 mg PO TID 3 Days #9 cap HYDROcodone/APAP 7.5-325MG [Trenton 7.5] 1 each PO Q6HR PRN #28 tab PRN Reason: Pain Sennosides/Docusate Sodium [Senna-S 8.6-50 mg Tablet] 2 each PO DAILY PRN #30 tablet PRN Reason: Constipation No Action busPIRone HCL [Buspar] 30 mg PO BID traZODone HCL 300 mg PO HS Topiramate [Topamax] 150 mg PO BID 30 Days #90 tab QUEtiapine FUMARATE [SEROquel] 200 mg PO HS Gabapentin [Neurontin] 400 mg PO TID diazePAM [Valium] 10 mg PO TID Discharge Medication List Gabapentin [Neurontin] 400 mg PO TID 11/21/23 [History] busPIRone HCL [Buspar] 30 mg PO BID 11/21/23 [History] diazePAM [Valium] 10 mg PO TID 11/21/23 [History] traZODone HCL 300 mg PO HS 11/21/23 [History] Topiramate [Topamax] 150 mg PO BID 30 Days #90 tab 11/23/23 [Rx] QUEtiapine FUMARATE [SEROquel] 200 mg PO HS 07/09/24 [History] Aspirin 325 mg PO DAILY #30 tab 07/12/24 [Rx] Gabapentin [Neurontin] 400 mg PO TID 3 Days #9 cap 07/12/24 [Rx] HYDROcodone/APAP 7.5-325MG [[place] 7.5] 1 each PO Q6HR PRN #28 tab 07/12/24 [Rx] Sennosides/Docusate Sodium [Senna-S 8.6-50 mg Tablet] 2 each PO DAILY PRN #30 tablet 07/12/24 [Rx] cefaDROXiL [Duricef] 500 mg PO Q12HR 5 Days #10 cap 07/12/24 [Rx] diazePAM [Valium] 10 mg PO TID PRN #9 tab 07/12/24 [Rx] Follow up Appointment(s)/Referral(s): [facility], [NON-STAFF] - ([facility] will call you to schedule your in home nursing, physical therapy, occupational therapy, and aide visits. ) Dima Li MD [Primary Care Provider] - 1-2 days Andrew Platt DO [Doctor of Osteopathic Medicine] - 10 Days Activity/Diet/Wound Care/Special Instructions: Orthopedic discharge instructions: 1. Nonweightbearing left lower extremity 2. Keep splint clean and dry, do not remove 3. Aspirin 325 mg daily for DVT prophylaxis 4. Ice and elevate the extremity often 5. Plan for follow-up in 10 days, contact office with any issues or questions Discharge Disposition: TRANSFER TO SNF/ECF
--- NOTE | 2024-07-12 15:39 | P.PN ---
Subjective Progress Note Date: 07/12/24 Patient is evaluated today on the medical floor. Pending surgical repair of the left tibial fracture. Patient is asking for a drink. She is NPO for surgery. Chest xray today reveals left sided atelectasis and an incentive spirometer was ordered. 07/11/2024 Patient is evaluated today resting in bed. She is postoperative day #1 surgical repair underwent open repair of left tibial shaft fracture with IMN fixation and a leg splint was applied to the LLE. Patient is currently on room air 93% encouraged to use the IS. 07/12/2024 Patient is evaluated today resting in the bed. Postoperative day #2 surgical repair of the left tibial shaft fracture. Cast in place to the left leg. Patient reports significant pain. She is napping. Not having any shortness of breath. She is tolerating diet. Review of Systems Constitutional: Denied any fatigue denied any fever. Cardio vascular: denied any chest pain, palpitations Gastrointestinal: denied any nausea, vomiting, diarrhea Pulmonary: Denied any shortness of breath cough Neurologic denied any new focal deficits All inpatient medications were reviewed and appropriate changes in these medications as dictated in the interval history and assessment and plan. PHYSICAL EXAMINATION: GENERAL: The patient is alert and oriented x3, not in any acute distress. Well developed, well nourished. HEENT: Pupils are round and equally reacting to light. EOMI. No scleral icterus. No conjunctival pallor. Normocephalic, atraumatic. No pharyngeal erythema. No thyromegaly. CARDIOVASCULAR: S1 and S2 present. No murmurs, rubs, or gallops. PULMONARY: Chest is clear to auscultation, no wheezing or crackles. ABDOMEN: Soft, nontender, nondistended, normoactive bowel sounds. No palpable organomegaly. MUSCULOSKELETAL: No joint swelling or deformity. EXTREMITIES: No cyanosis, clubbing, or pedal edema. NEUROLOGICAL: Gross neurological examination did not reveal any focal deficits. SKIN: No rashes. Cast in place to the left leg. Assessment Fall with left tibia-fibula/foot fracture postoperative day #2 surgical repair. Seizure disorder Developmental delay Bipolar disorder Vape use Leukocytosis reactive, has resolved Left lung atelectasis GI prophylaxis DVT prophylaxis as per primary Full code Plan Incentive spirometer ordered Continue gabapentin topiramate Stop the IV fluids Monitor electrolytes PT/OT on consult recommending JOAQUIM. Pending insurance authorization for [facility] bed. Patient wont discharge until Sunday. The impression and plan of care has been dictated by Bhavana Bateman, Nurse Practitioner as directed. Dr. Nima MD I have performed a history and physical examination and medical decision making of this patient, discussed the same with the dictator, and agree with the dictators assessment and plan as written, documented as a scribe. Based on total visit time, I have performed more than 50% of this visit. Objective - Vital Signs Vital signs: Vital Signs Temp 97.4 F L 07/12/24 07:28 Pulse 86 07/12/24 07:28 Resp 19 07/12/24 07:28 BP 94/62 07/12/24 07:28 Pulse Ox 95 07/12/24 07:28 FiO2 Intake & Output 07/11/24 07/12/24 07/12/24 18:59 06:59 18:59 Output Total 3400 1300 1000 Balance -3400 -1300 -1000 Output: Urine 3400 1300 1000 Other: Voiding Method Indwelling Catheter Indwelling Catheter # Bowel Movements 1 - Labs CBC & Chem 7: 07/10/24 03:01 07/12/24 03:04 Labs: Abnormal Lab Results - Last 24 Hours (Table) 07/12/24 Range/Units 03:04 Chloride 112 H (96-109) mmol/L Carbon Dioxide 21.2 L (21.6-31.8) mmol/L Calcium 8.4 L (8.7-10.3) mg/dL Assessment and Plan Time with Patient: Less than 30
--- NOTE | 2024-07-15 18:22 | XR ---
EXAMINATION TYPE: XR tibia fibula LT, FL guidance operating room DATE OF EXAM: 07/10/2024 6:31 PM COMPARISON: Pre Operative Images if available both CT/MRI or plain film CLINICAL INDICATION: Female, 44 years old with history of LEG FRACTURE; TECHNIQUE: XR tibia fibula LT, FL guidance operating room, multiple fluoroscopic images provided for procedure. Total fluoroscopy time: 85 seconds Total submitted images to PACS: 5 DAP: 1.25 mGym2 Gycm2 uGym2 cGycm2 or equivalent. FINDINGS: Fluoroscopic images during intramedullary tere placement with hardware in appropriate position. Hard[place] re appears intact. No immediate complication identified. IMPRESSION: 1. No evidence for intraoperative complication. 2. Please see the operative/procedural note for further details. [facility], , 07/15/2024 6:19 PM
== END 2024-07-12 18:42 | DRG 493 ==
LOC: EC 07:43 → 4SSUR 09:58
PROVIDERS: ADMIT Orthopaedic Surgery; ATTEND Orthopaedic Surgery
PROC: 0QSH06Z Reposition Left Tibia with Intramedullary Internal Fixation Device, Open Approach (ICD-10-PCS; principal; 2024-07-10 14:35)
DX: S82.242A Displaced spiral fracture of shaft of left tibia, initial encounter for closed fracture (principal); J98.11 Atelectasis; S82.832A Other fracture of upper and lower end of left fibula, initial encounter for closed fracture; F31.9 Bipolar disorder, unspecified; S92.322A Displaced fracture of second metatarsal bone, left foot, initial encounter for closed fracture; S92.332A Displaced fracture of third metatarsal bone, left foot, initial encounter for closed fracture; S92.342A Displaced fracture of fourth metatarsal bone, left foot, initial encounter for closed fracture; F51.3 Sleepwalking [somnambulism]; G40.909 Epilepsy, unspecified, not intractable, without status epilepticus; W18.30XA Fall on same level, unspecified, initial encounter; R62.50 Unspecified lack of expected normal physiological development in childhood; Y92.009 Unspecified place in unspecified non-institutional (private) residence as the place of occurrence of the external cause; Z79.899 Other long term (current) drug therapy
CPT/HCPCS: 64447; 71045; 80048; 80053; 81025; 85025; 85610; 85730; 93005; 96361; 96374; 96375; 96376; 99285